=== PATIENT | female | born 1985 | race African-American/Black ===

== ENCOUNTER 2024-04-17 22:56 | Emergency (ER) | payer MEDICAID, SELFPAY ==
[2024-04-17 22:57] VITALS: BP 136/84; PULSE 103; RESP 19; TEMP 36.7; O2SAT 100; BMI 36.0
[2024-04-17 23:20] LABS: Basophils Percent Auto 0.5 % (0-2); Eosinophils Absolute Auto 0.1 X10*3/uL (0.0-0.4); Eosinophils Percent Auto 1.5 % (0-4); Hemoglobin 12.7 g/dl (12.0-16.0); Imm Gran Abs Auto 0.02 X10*3/uL (0.00-0.03); Imm Gran Pct Auto 0.3 % (0.0-0.4); Lymphocytes Absolute Auto 2.4 X10*3/uL (1.2-4.9); Lymphocytes Percent Auto 31.2 % (20-40); MANUAL DIFF FLAG SCAN; Mean Corpuscular HGB Conc 36.3 g/dl (31.0-35.0); Mean Corpuscular Hemoglobin 30.2 pg (27.0-33.0); Mean Corpuscular Volume 83.3 fL (80.0-98.0); Mean Platelet Volume 9.9 fL (9.4-12.3); Monocytes Absolute Auto 0.5 X10*3/uL (0.1-1.2); Monocytes Percent Auto 6.8 % (2-11); Neutrophils Absolute Auto 4.7 x10*3/uL (2.0-8.3); Neutrophils Percent Auto 59.7 % (45-73); PLT CLUMP 1; Red Cell Distribution Width 11.9 % (11.0-16.0); SCAN SMEAR FLAG 1
--- NOTE | 2024-04-17 23:30 | ED_ITS ---
HPI - Nausea/Vomiting/Diarrhea General Chief complaint: Abdominal Pain Stated complaint: cough, body aches, diffuse pain Time Seen by Provider: 04/17/24 23:15 Source: patient Mode of arrival: ambulatory Limitations: no limitations History of Present Illness ED Provider: HERMAN GAYLE Narrative: 39 yo female with PMH of IDDM, prior c section, appendectomy here with c/o traveling back from [place] on Thursday on the way home she developed nausea and diarrhea. She notes some mild upper abdominal cramping at times. No one else is sick, no fevers, no bloody stools and no pain now. She has not been on antibiotics. She feels that everything tastes gross to her she did take a COVID test and it was negative. No one else is sick whom she traveled with. She has no abdominal pain now. MD elicited complaint: nausea and diarrhea Onset (ago): day(s) (5) Associated nausea: Yes Associated abdominal pain: No Pain consistency: intermittent Severity: mild Quality: cramping Exacerbating factors: eating Relieving factors: none Associated symptoms: loss of appetite, malaise, weakness and fatigue Related Data Previous Rx's ?Medication ?Instructions ?Recorded ondansetron 4 mg disintegrating 4 mg PO Q8H PRN nausea and 04/18/24 tablet vomiting #20 tabs Allergies Allergy/AdvReac Type Severity Reaction Status Date / Time No Known Allergies Allergy Verified 04/17/24 23:01 Review of Systems 2 Review of Systems: Constitutional : No Weight loss, No Fever, No Chills ENT/Mouth : No sore throat, No Rhinorrhea Eyes: No Swelling, No Redness Cardiovascular : No Chest Pain, No SOB, NoEdema Respiratory : No Cough, No Sputum, No Wheezing Gastrointestinal : Positive Nausea, no Vomiting, positive Diarrhea, positive abdominal Pain, No Hematochezia, No Melena Genitourinary : No Dysuria, No Urinary Frequency, No Hematuria, No Urgency Musculoskeletal : No joint pain, No Myalgias, No Joint Swelling Skin : No Skin Lesions, No rash Neuro : pos Weakness, No Numbness, No Dizziness, No Headache Psych : No Anxiety/Panic, No Depression All other systems reviewed and are negative. Gastrointestinal: Gastrointestinal: Reports nausea PMFSH Past Medical History Attestation statement: The following information was validated with the patient. Source: old records reviewed Medical History (Updated 04/18/24 @ 01:46 by Ronel Francois DO) Diabetes Surgical History (Updated 04/17/24 @ 23:37 by Ronel Francois DO) Hx of appendectomy Previous section Social History Social History (Updated 04/17/24 @ 23:37 by Ronel Francois DO) Patient Tobacco Use Status: Never used Tobacco Smoked in Last 30 Days: No Use of substances other than those prescribed or required for medical reasons: No Advance Directives: No Advance Directives Information Provided: Yes Do you have a plan to hurt others: No Plan Patient : No Physical Exam 2 Vital Signs: Vital Signs: Last Vital Signs Temp 98.1 F 04/17/24 22:57 Pulse 103 H 04/17/24 22:57 Resp 19 04/17/24 22:57 BP 136/84 04/17/24 22:57 Pulse Ox 100 04/17/24 22:57 O2 Del Method Room Air 04/17/24 22:57 BMI result Body Mass Index 36.0 Appearance: Alert. Oriented X3. No acute distress. Eyes: Pupils equal, round and reactive to light. ENT: Pharynx normal. Neck: Normal inspection. Neck supple. CVS: Normal heart rate and rhythm. Pulses normal. Respiratory: No respiratory distress. Breath sounds normal. Abdomen: Soft and non-tender. She has no pain to palpation at this time Skin: Skin warm and dry. Normal skin color. Extremities: No lower extremity edema. Neuro: Oriented X 3. No motor deficit. No sensory deficit. Medications Administered Discontinued Medications Generic Name Dose Route Start Last Admin Trade Name Freq PRN Reason Stop Dose Admin Sodium Chloride 1,000 mls @ 999 mls/hr 04/17/24 23:23 04/18/24 00:18 Ns IV 04/18/24 00:23 999 mls/hr .Q1H1M ONE Administration Ondansetron HCl 4 mg 04/17/24 23:29 04/18/24 00:20 Ondansetron Hcl 4 Mg/2 Ml Vial IVPUSH 04/17/24 23:30 4 mg ONCE ONE Administration Medical Decision Making Medical Decision Making MDM Narrative: 39 yo female with PMH of IDDM, prior c section, appendectomy here with c/o nausea, poor taste, feels dehydrated, resolved diarhea - no recent abx use at this time will need basic labs, UA, IVF/zofran and viral panel to look for COVID. She has no CP/SOB or signs of DVT to suggest VTE and she has no pain on palpation at this time to suggest acute abdominal pathology or infection. Differential Diagnosis Differential Diagnoses: The differential diagnosis associated with the presentation includes viral syndrome, UTI, dehydration Admission/Observation Consideration of admission/observation: Escalation of care including admission/observation considered no abdominal pain, eating food, VS improved, feels much better Lab Data MDM Lab Attestation statement: I reviewed the patient's lab results. 04/17/24 23:11 04/17/24 23:11 Labs: Lab Results 04/17/24 04/18/24 Range/Units 23:11 01:23 WBC 7.8 (4.8-10.8) X10*3/uL RBC 4.20 (4.20-5.50) X10*6/uL Hgb 12.7 (12.0-16.0) g/dl Hct 35.0 L (37.0-47.0) % MCV 83.3 (80.0-98.0) fL MCH 30.2 (27.0-33.0) pg MCHC 36.3 H (31.0-35.0) g/dl RDW 11.9 (11.0-16.0) % Plt Count 234 (160-400) X10*3/uL MPV 9.9 (9.4-12.3) fL Immature Gran % (Auto) 0.3 (0.0-0.4) % Neut % (Auto) 59.7 (45-73) % Lymph % (Auto) 31.2 (20-40) % [place] % (Auto) 6.8 (2-11) % Eos % (Auto) 1.5 (0-4) % Baso % (Auto) 0.5 (0-2) % Lymph # (Auto) 2.4 (1.2-4.9) X10*3/uL [place] # (Auto) 0.5 (0.1-1.2) X10*3/uL Eos # (Auto) 0.1 (0.0-0.4) X10*3/uL Baso # (Auto) 0.0 (0.0-0.2) X10*3/uL Abs Immat Gran (auto) 0.02 (0.00-0.03) X10*3/uL Absolute Neuts (auto) 4.7 (2.0-8.3) x10*3/uL Absolute Nucleated RBC 0.000 (0.0-0.012) X10*3/uL Nucleated RBC % (auto) 0.0 (0.0-0.2) /100WBC Smear Tech's Comments VERIFIED Sodium 132 L (135-145) mmol/L Potassium 3.6 (3.3-5.1) mmol/L Chloride 98 (96-108) mmol/L Carbon Dioxide 21 L (22-29) mmol/L Anion Gap 17 (12-20) BUN 15 (9-16) mg/dL Creatinine 1.02 (0.5-1.4) mg/dL Estim Creat Clear Calc 75.4 Estimated GFR > 60 Random Glucose 327 H (60-115) mg/dL Calcium 9.4 (8.4-10.2) mg/dL Total Bilirubin 0.2 (0.0-1.0) mg/dL Direct Bilirubin < 0.2 (0.0-0.5) mg/dL AST 10 (5-31) U/L ALT 7 (0-31) U/L Alkaline Phosphatase 90 (39-117) U/L Total Protein 8.1 H (6.5-8.0) g/dL Albumin 3.6 (3.5-5.0) g/dL Lipase 39 (8-78) U/L Urine Color Yellow Urine Appearance Clear Urine pH 6.0 (5.0-9.0) Ur Specific [place] 1.020 (1.005-1.025) Urine Protein 30 (1+) H (Neg-Trace) mg/dL Urine Glucose (UA) >=1000 H (Negative) mg/dL Urine Ketones Negative (Negative) mg/dL Urine Blood Small (1+) H (Negative) Urine Nitrite Negative (Negative) Ur Leukocyte Esterase Negative (Negative) Urine RBC 3-5 H (0-2) /HPF Urine WBC 0-5 (0-5) /HPF Ur Squamous Epith Cells 3-5 (0-2) /HPF Urine Bacteria None Seen (None Seen) Hyaline Casts 0-2 (0-2) /LPF Granular Casts Present Urine Test NEGATIVE (NEGATIVE) Influenza Type A (PCR) NEGATIVE (Negative) Influenza Type B (PCR) NEGATIVE (Negative) RSV RNA Qual (PCR) NEGATIVE (Negative) SARS-CoV-2 RNA (RT-PCR) NEGATIVE (Negative) Independent Historian Clinical information obtained from an independent historian. History obtained from or confirmed by: Parent Prescription Management I considered prescription management with: Other (zofran) Discharge Plan Discharge Clinical Impression: Acute viral syndrome, Nausea Patient Disposition: Home, Self-Care Instructions: Acute Nausea and Vomiting (ED), Viral Syndrome (ED) Additional Instructions: eat a bland diet and advance slowly stay hydrated return if you develop pain, bloody stools, fevers, unable to eat or drink or any other concerns Prescriptions: New ondansetron 4 mg tablet,disintegrating 4 mg PO Q8H PRN (Reason: nausea and vomiting) Qty: 20 0RF Print Language: Swiss
[2024-04-17 23:38] LABS: Platelet Count 234 X10*3/uL (160-400); SLIDE REVIEW VERIFIED; White Blood Count 7.8 X10*3/uL (4.8-10.8)
[2024-04-17 23:39] LABS: Alanine Aminotransferase 7 U/L (0-31); Albumin Level 3.6 g/dL (3.5-5.0); Alkaline Phosphatase 90 U/L (39-117); Anion Gap 17 (12-20); Aspartate Amino Transferase 10 U/L (5-31); Bilirubin Direct < 0.2 mg/dL (0.0-0.5); Bilirubin Total 0.2 mg/dL (0.0-1.0); Blood Urea Nitrogen 15 mg/dL (9-16); Calcium 9.4 mg/dL (8.4-10.2); Carbon Dioxide 21 mmol/L (22-29); Chloride 98 mmol/L (96-108); Creatinine Clr Calc Pharmacy 75.4; Estimated Glomerular Filt Rate > 60; Glucose Random 327 mg/dL (60-115); Lipase 39 U/L (8-78); Potassium 3.6 mmol/L (3.3-5.1); Sodium 132 mmol/L (135-145); Total Protein 8.1 g/dL (6.5-8.0)
[2024-04-17 23:56] LABS: Influenza A PCR NEGATIVE (Negative); Influenza B PCR NEGATIVE (Negative); Resp Syncy Virus RNA Qual PCR NEGATIVE (Negative); SARS COV2 PCR INHOUSE NEGATIVE (Negative)
[2024-04-18] MEDS: 0.9 % Sodium Chloride 1,000 ML 999 ML IV (00:18)
[2024-04-18] MEDS: ondansetron HCL 4 MG/2 ML VIAL IVPUSH (00:20)
[2024-04-18 01:30] LABS: Appearance Urine Clear; Color Urine Yellow; Glucose Urine UA >=1000 mg/dL (Negative); Leukocyte Esterase Urine Negative (Negative); Nitrite Urine Negative (Negative); UMIC TRIGGER UACC YES; Urine Blood Small (1+) (Negative); Urine Ketones Negative (Negative); Urine Protein 30 (1+) mg/dL (Neg-Trace)
[2024-04-18 01:32] LABS: UPreg QC Valid YES; Urine Pregnancy NEGATIVE (NEGATIVE)
[2024-04-18 01:42] LABS: Bacteria Urine None Seen (None Seen); Granular Casts Urine Present; Hyaline Casts Urine 0-2 /LPF (0-2); WBC Urine 0-5 /HPF (0-5)
[2024-04-18 01:50] VITALS: BP 110/75; PULSE 94; RESP 18; TEMP 36.8; O2SAT 96
[2024-04-18 02:01] VITALS: BP 110/75; PULSE 94; RESP 18; TEMP 36.8; O2SAT 96
== END 2024-04-18 02:02 | disposition home or self-care (01) ==
PROVIDERS: Emergency Provider Emergency Medicine; PCP Internal Medicine
DX: B34.9 Viral infection, unspecified (principal); R10.30 Lower abdominal pain, unspecified; R05.9 Cough, unspecified; M79.10 Myalgia, unspecified site; R11.0 Nausea; Z03.818 Encounter for observation for suspected exposure to other biological agents ruled out; Z79.899 Other long term (current) drug therapy
CPT/HCPCS: 0241U; 80048; 80076; 81001; 81025; 83690; 85025; 96360; 96374; 99284; J2405

== ENCOUNTER 2024-06-20 22:42 | Emergency (ER) | payer MEDICAID, SELFPAY ==
[2024-06-20 22:46] VITALS: BP 113/81; PULSE 111; RESP 20; TEMP 36.8; O2SAT 97; BMI 37.8
--- NOTE | 2024-06-21 02:46 | ED.GENADULT ---
HPI - General Adult General Chief complaint: General Medical Stated complaint: lower back pain Time Seen by Provider: 06/21/24 02:43 Source: patient Mode of arrival: ambulatory Limitations: no limitations History of Present Illness ED Provider: Dr. Marley HPI narrative: Patient is a diabetic and she has a vaginal discharge. The Discharge is yellow and she is concerned that she either has a STD or candidiasis. She has had the discharge for one week Onset (ago): week(s) Related Data Previous Rx's ?Medication ?Instructions ?Recorded ondansetron 4 mg disintegrating 4 mg PO Q8H PRN nausea and 04/18/24 tablet vomiting #20 tabs Allergies Allergy/AdvReac Type Severity Reaction Status Date / Time No Known Allergies Allergy Verified 06/20/24 22:46 Review of Systems Review of Systems: Yes all other systems are reviewed and are negative Neurologic: Denies Sensory deficit (Neuro) [facility] Past Medical History Medical History Diabetes Surgical History Hx of appendectomy Previous section Social History Social History Patient Tobacco Use Status: Never used Tobacco Advance Directives: No Advance Directives Information Provided: No Do you have a plan to hurt others: No Plan Physical Exam ED Vital Signs: Vital Signs - 24 hr 06/20/24 22:46 Temperature 98.3 F Pulse Rate 111 H Respiratory Rate 20 Blood Pressure 113/81 Pulse Oximetry 97 Oxygen Delivery Method Room Air BMI result Body Mass Index 37.8 Const General: healthy appearing Nutritional Appearance: average body habitus Orientation/consciousness: oriented to person and patient oriented x3 Limitations: no limitations HENMT Head: Yes normal to inspection Ears: external ears normal General nose exam: Normal external nose present Mouth: Normal oral and palatal mucosa present and oropharynx normal Throat: Yes posterior oropharynx normal Eyes General: appearance normal, both eyes and all related structures Neck Neck: Yes normal visual inspection Chest Chest palpation & inspection: normal inspection of the chest Resp Auscultation: clear to auscultation bilaterally Cardio Jugular venous distension: no JVD Rate: regular rate Rhythm: regular rhythm Heart sounds: S1 normal heart sound present and S2 normal heart sound present GI Inspection: Yes normal to inspection Palpation (GI): Soft to palpation, nontender and No hepatosplenomegaly present Auscultation: normal bowel sounds General: Yes no CVA tenderness Back/Spine/Pelvis Back: no CVA tenderness Skin General skin exam: no rashes or lesions noted Neuro General: oriented to person and patient oriented x3 Cranial nerves: Yes CN's II-XII intact bilaterally Motor exam (neuro): 5/5 motor strength present throughout Sensory Exam: No Sensory deficit (Neuro) Extrem General: Yes normal to inspection Psych Appearance: grossly normal Course Reevaluation(s) Reevaluation #1: Urine ng/CT sent as well as BV, bobbi, and trichomonas. Will call patient if the tests are positive Time: 04:08 Medical Decision Making Differential Diagnosis Differential Diagnoses: The differential diagnosis associated with the presentation includes (gonorrhea, chlamydia, trichomonas, bacterial vaginosis, candidiasis) Prescription Management I considered prescription management with: Antibiotic (will await on cultures before start abx) Social Determinants Patient?s care significantly limited by Social Determinants of Health including: Low income Discharge Plan Discharge Clinical Impression: Vaginal discharge Patient Disposition: Home, Self-Care Instructions: Vaginal Discharge (ED) Prescriptions: No Action ondansetron 4 mg tablet,disintegrating 4 mg PO Q8H PRN (Reason: nausea and vomiting) Qty: 20 0RF Referrals: Kamran Tran MD [Physician] - 3 days Print Language: Palestinian
[2024-06-21 04:36] VITALS: BP 123/76; PULSE 101; RESP 18; TEMP 36.1; O2SAT 100
[2024-06-21 04:42] VITALS: BP 123/76; PULSE 102; RESP 17; TEMP 36.1; O2SAT 100
[2024-06-21 11:27] LABS: CT PCR NOT DETECTED (Not Detect.); NG PCR DETECTED (Not Detect.)
[2024-06-21 11:51] LABS: Bacterial Vaginosis PCR POSITIVE (Negative); Candida Group PCR NOT DETECTED (Not Detect); Candida glab krusei PCR NOT DETECTED (Not Detect); Trichomonas vaginalis PCR DETECTED (Not Detect)
== END 2024-06-21 04:43 | disposition home or self-care (01) ==
PROVIDERS: Emergency Provider Emergency Medicine
DX: N76.0 Acute vaginitis (principal); M54.50 Low back pain, unspecified; A54.9 Gonococcal infection, unspecified
CPT/HCPCS: 0352U; 87491; 87591; 99283; 99284

== ENCOUNTER 2024-06-23 18:58 | Emergency (ER) | payer MEDICAID, SELFPAY ==
[2024-06-23 19:23] VITALS: BP 141/88; PULSE 104; RESP 16; TEMP 36.6; O2SAT 98; BMI 38.7
--- NOTE | 2024-06-23 19:30 | ED.FEMALEGU ---
HPI - Female Genitourinary General Chief complaint: Urogenital-Female Stated complaint: seen here t-2 in ED, was called to come back? Time Seen by Provider: 06/23/24 19:21 Source: patient Mode of arrival: ambulatory Limitations: no limitations History of Present Illness ED Provider: Kalin Bravo PA-C HPI Narrative: 39 yold female presents to the ED to be treated for gonorrhea, and trich and BV. patient was called with results and return to the ED to be treated. Patient admits to unprotected sex Related Data Previous Rx's ?Medication ?Instructions ?Recorded ondansetron 4 mg disintegrating 4 mg PO Q8H PRN nausea and 04/18/24 tablet vomiting #20 tabs metronidazole 500 mg tablet 500 mg PO Q12H 7 days #14 tabs 06/23/24 Allergies Allergy/AdvReac Type Severity Reaction Status Date / Time almond Allergy Anaphylaxis Verified 06/23/24 19:24 banana Allergy Anaphylaxis Verified 06/23/24 19:24 Review of Systems Review of Systems: STD Yes all other systems are reviewed and are negative PMFSH Past Medical History Medical History Diabetes Surgical History Hx of appendectomy Previous section Social History Social History Patient Tobacco Use Status: Never used Tobacco Advance Directives: No Advance Directives Information Provided: No Physical Exam Vital Signs: Vital Signs: Last Vital Signs Temp 97.8 F 06/23/24 20:27 Pulse 104 H 06/23/24 20:27 Resp 16 06/23/24 20:27 BP 141/88 H 06/23/24 20:27 Pulse Ox 98 06/23/24 20:27 O2 Del Method Room Air 06/23/24 20:27 BMI result Body Mass Index 38.7 Const: General: cooperative, healthy appearing, comfortable, no acute distress, well developed, alert and awake Orientation/consciousness: patient oriented x3 HEENT: Head: Yes normal to inspection, Yes No palpable skull fracture present, Yes normocephalic and Yes atraumatic Eyes: General: appearance normal, both eyes and all related structures Neck: Neck: Yes normal visual inspection, Yes full ROM, Yes no lymphadenopathy, Yes no meningeal signs, Yes trachea midline, Yes supple, No anterior neck swelling and No tender Chest: Chest palpation & inspection: normal inspection of the chest and normal palpation of entire chest wall Resp: Effort & Inspection: normal respiratory effort and able to speak in complete sentences Auscultation: clear to auscultation bilaterally Cardio: Jugular venous distension: no JVD Heart sounds: S1 normal heart sound present and S2 normal heart sound present GI: Inspection: Yes normal to inspection Palpation (GI): Soft to palpation, not firm, nontender, no guarding and not rigid : Other: deferred General: Yes no CVA tenderness Back/Spine/Pelvis: Back: no CVA tenderness and No back tenderness Skin: General skin exam: no rashes or lesions noted, elasticity normal and turgor normal Neuro: General: patient oriented x3, gait normal, tone normal, moves all extremities, Normal light touch and pain sensation, no meningeal signs, no focal motor deficits and CN's II-XI intact bilaterally Extrem: General: Yes normal to inspection, Yes full ROM and Yes capillary refill normal Psych: Appearance: grossly normal, well kempt and not disheveled Course Course Course Narrative: RME: Done by BOB Bravo. Patient presented to the ED to be treated for known gonorrhea metronidazole. Patient was called back to the ED for treatment. Medications Administered Discontinued Medications Generic Name Dose Route Start Last Admin Trade Name Freq PRN Reason Stop Dose Admin Ceftriaxone Sodium 500 mg/ 0 mg 06/23/24 19:22 06/23/24 20:27 Lidocaine HCl 1 ml IM 06/23/24 19:23 1 kit ONCE ONE Administration Medical Decision Making Medical Decision Making [facility] Narrative: 39-year-old female presents to the ED for treatment for gonorrhea and BV. Patient received ceftriaxone will be discharged with metronidazole. Patient informed to tell her partners. Patient informed to go to [facility] to be tested for HIV, syphyillis, herpes, or any other tests Differential Diagnosis Differential Diagnoses: The differential diagnosis associated with the presentation includes (STI) Admission/Observation Consideration of admission/observation: Escalation of care including admission/observation considered Independent Historian Clinical information obtained from an independent historian. History obtained from or confirmed by: Other (patient) External Record Review External record reviewed: Other (prior) Prescription Management I considered prescription management with: Antibiotic Discharge Plan Discharge Clinical Impression: Trichomoniasis, Bacterial vaginosis, Gonorrhea Patient Disposition: Home, Self-Care Instructions: Bacterial Vaginosis (ED), Gonorrhea (ED), Trichomoniasis (ED) Additional Instructions: Recommend follow-up with your primary care provider. No sexual activity for the next 7 days. Return to the ED for any flank pain, fever, chills, nausea, vomiting, abdominal pain, vaginal lesions, or any other concerning symptoms. Follow-up with [facility] to be tested for other STIs Prescriptions: New metronidazole 500 mg tablet 500 mg PO Q12H 7 Days Qty: 14 0RF No Action ondansetron 4 mg tablet,disintegrating 4 mg PO Q8H PRN (Reason: nausea and vomiting) Qty: 20 0RF Interventions: ED Discharge Assessment Last Done: 06/23/24 20:27 Discharge Date/Time: 06/23/24 20:28 Print Language: Citizen Of [place]
[2024-06-23 20:27] VITALS: BP 141/88; PULSE 104; RESP 16; TEMP 36.6; O2SAT 98
[2024-06-23] MEDS: cefTRIAXone sodium 500 MG, Lidocaine HCl 1 % MPF 1 ML IM (20:27)
== END 2024-06-23 20:28 | disposition home or self-care (01) ==
PROVIDERS: Emergency Provider Internal Medicine
DX: N76.0 Acute vaginitis (principal); A54.9 Gonococcal infection, unspecified; A59.01 Trichomonal vulvovaginitis; Z20.2 Contact with and (suspected) exposure to infections with a predominantly sexual mode of transmission
CPT/HCPCS: 96372; 99282; 99284; J0696

== ENCOUNTER 2024-11-22 18:34 | Emergency (ER) | payer MEDICAID, SELFPAY ==
[2024-11-22 18:39] VITALS: BP 150/80; BP 168/99; PULSE 100; PULSE 115; RESP 16; TEMP 36.9; O2SAT 100; O2SAT 97; BMI 43.0
[2024-11-22 18:48] VITALS: RESP 16
--- NOTE | 2024-11-22 19:16 | ED_ITS ---
HPI - Psych General Chief Complaint: Psychiatric Symptoms Stated Complaint: Previous SI statement, now denies wanting to harm Time Seen by Provider: 11/22/24 18:43 Source: patient, EMS and police Mode of arrival: EMS Limitations: no limitations History of Present Illness ED Provider: DR. Penaloza HPI Narrative: 39-year-old female history of diabetes has been feeling depressed and upset, patient posted a SI statement on the face book, patient was brought in by EMS and the police under section 12, patient in the ED is tearful feels frustrated and angry because her did not show up to court day for filing a divorce at the court. Currently patient regrets her statement on the face woke declined any SI or HI or hallucination. Patient is diabetic blood sugar was 300 today. Never been hospitalized for mental health issue. Related Data Previous Rx's ?Medication ?Instructions ?Recorded ondansetron 4 mg disintegrating 4 mg PO Q8H PRN nausea and 04/18/24 tablet vomiting #20 tabs metronidazole 500 mg tablet 500 mg PO Q12H 7 days #14 tabs 06/23/24 Allergies Allergy/AdvReac Type Severity Reaction Status Date / Time almond Allergy Anaphylaxis Verified 11/22/24 18:47 banana Allergy Anaphylaxis Verified 11/22/24 18:47 Review of Systems Review of Systems: All other systems are reviewed and are negative Constitutional: Reports as per HPI and Reports no additional constitutional complaints Eyes: Reports as per HPI and Reports no additional eye complaints Reports system reviewed and no additional complaints, except as documented Cardiovascular: Reports as per HPI and Reports no additional cardiovascular complaints Respiratory: Reports as per HPI and Reports no additional respiratory complaints Gastrointestinal: Reports as per HPI and Reports no additional gastrointestinal complaints Genitourinary: Reports no additional female genitourinary complaints Musculoskeletal: Reports no additional musculoskeletal complaints Skin/Breast: Reports system reviewed and no additional complaints, except as docu Psychiatric: Reports no additional psychiatric complaints Endocrine: Reports no additional endocrine complaints Hematologic/Lymphatic: Reports no additional hematologic/lymphatic complaints Allergic/Immunologic: Reports no additional allergic/immunologic complaints Reports system reviewed and no additional complaints, except as documented and Reports Abnormal speech present [facility] Past Medical History Medical History Diabetes Surgical History Hx of appendectomy Previous section Social History Social History Unable to assess alcohol history related to: Refusing to respond Patient Tobacco Use Status: Never used Tobacco Smoked in Last 30 Days: No Use of substances other than those prescribed or required for medical reasons: Refusing to respond Patient : No Physical Exam Vital Signs: Vital Signs: Last Vital Signs Temp 98.5 F 11/22/24 18:39 Pulse 115 H 11/22/24 18:39 Resp 16 11/22/24 18:48 BP 168/99 H 11/22/24 18:39 Pulse Ox 100 11/22/24 18:39 O2 Del Method Room Air 11/22/24 18:39 BMI result Body Mass Index 43.0 Vital signs have been reviewed and appear to be correct. Blood pressure elevated. Heart rate elevated. Respiratory rate normal. Temperature normal. Oxygen saturation normal. Appearance: Alert. Oriented X3. No acute distress. Head: Normal external exam. Normocephalic. Atraumatic. No Lind signs noted. No raccoon eyes noted Eyes: PERRLA. EOMI. Conjunctiva and sclera normal. Eyelids normal. ENT: TM's Normal. Pharynx normal. Uvula midline. Moist mucous membranes. No trismus noted. No drooling noted. No muffled voice noted. Neck: Normal inspection. Neck supple. FROM. No adenopathy. Thyroid Normal. No meningeal signs. No neck mass noted. CVS: Normal heart rate and rhythm. Heart sound normal. No murmurs noted. Pulses normal throughout. Respiratory: No respiratory distress. Painless inspiration. Breath sounds normal. No wheezes/rales/rhonchi noted. Chest nontender. No accessory muscle usage noted or decreased air movement noted. Abdomen: Soft and nontender. Bowel sounds normal in all 4 quadrants. No distention noted. No organomegaly noted. No visible injury noted. Back: No CVA tenderness. Full range of motion noted. Skin: Skin warm and dry. Normal skin color. Normal skin turgor. No rashes/lesions/lacerations noted. Extremities: No lower extremity edema. Extremities exhibit normal range of motion. Extremities nontender. Neuro: Oriented X 3. Cranial nerve exam: II-XII are grossly intact No motor deficit. No sensory deficit. Reflexes normal. Patient Orientation: Person, Place, Time and Situation, okay hygiene and grooming. Fair eye contact, attentive, no tics or tremors. Level of Consciousness: Awake, Appropriate and Alert Patient Behavior: Tearful, Appropriate, Guarded, Cooperative and Anxious Mood Description: Constricted, Blunted and Apprehensive Affect Description: Constricted, Blunted and Apprehensive Patient Cognition Impaired: No Ability to Follow Directions: Excellent Speech Pattern: Clear, Appropriate and Spontaneous Speech, nonpressured, spontaneous with regular rate and rhythm, normal volume and prosody. No dysarthria. Memory Description: Intact, Immediate Intact and Short Term Intact Hallucinations: None Delusions: Not Present Thought Process: Intact Thought Content: positive for Intact, positive for Logical, denies Suicidal Ideation and denies Homicidal Ideation. Depressive Symptoms: Not present. Judgement and Insight: Limited but adequate. Course Reevaluation(s) Reevaluation #1: 39-year-old female feels depressed and overwhelmed while she is in the process of divorce with her , posted on the [employer] SI statement that she regrets now. Care team for further evaluation and contact collaterals. Medical clearance. Time: 19:21 Medical Decision Making Differential Diagnosis Differential Diagnoses: The differential diagnosis associated with the presentation includes (SI, HI, hallucination, medical cramps, electrolyte derangement, severe anemia) Admission/Observation Consideration of admission/observation: Escalation of care including admission/observation considered Lab Data MDM Lab Attestation statement: I reviewed the patient's lab results. Discharge Plan Discharge Clinical Impression: Depression Patient Disposition: Still a Patient Prescriptions: No Action ondansetron 4 mg tablet,disintegrating 4 mg PO Q8H PRN (Reason: nausea and vomiting) Qty: 20 0RF metronidazole 500 mg tablet 500 mg PO Q12H 7 Days Qty: 14 0RF Interventions: [place]-Suicide Risk Severity Scale Last Done: 11/22/24 18:49 Print Language: [place] Island[place]
[2024-11-22 19:31] LABS: MANUAL DIFF FLAG NO
[2024-11-22 19:36] LABS: Basophils Absolute Auto 0.1 X10*3/uL (0.0-0.2); Basophils Percent Auto 0.6 % (0-2); Eosinophils Percent Auto 0.5 % (0-4); Hematocrit 36.8 % (37.0-47.0); Hemoglobin 12.5 g/dl (12.0-16.0); Imm Gran Abs Auto 0.03 X10*3/uL (0.00-0.03); Imm Gran Pct Auto 0.4 % (0.0-0.4); Lymphocytes Absolute Auto 2.2 X10*3/uL (1.2-4.9); Lymphocytes Percent Auto 26.4 % (20-40); Mean Corpuscular Hemoglobin 29.3 pg (27.0-33.0); Mean Corpuscular Volume 86.2 fL (80.0-98.0); Mean Platelet Volume 8.7 fL (9.4-12.3); Monocytes Absolute Auto 0.4 X10*3/uL (0.1-1.2); Monocytes Percent Auto 5.2 % (2-11); Neutrophils Absolute Auto 5.6 x10*3/uL (2.0-8.3); Neutrophils Percent Auto 66.9 % (45-73); Platelet Count 431 X10*3/uL (160-400); Red Blood Count 4.27 X10*6/uL (4.20-5.50); Red Cell Distribution Width 12.6 % (11.0-16.0); White Blood Count 8.3 X10*3/uL (4.8-10.8)
[2024-11-22 19:51] LABS: Alanine Aminotransferase 13 U/L (0-31); Albumin Level 3.8 g/dL (3.5-5.0); Alkaline Phosphatase 71 U/L (39-117); Anion Gap 14 (12-20); Aspartate Amino Transferase 20 U/L (5-31); Bilirubin Total 0.4 mg/dL (0.0-1.0); Blood Urea Nitrogen 7 mg/dL (9-16); Calcium 9.1 mg/dL (8.4-10.2); Carbon Dioxide 26 mmol/L (22-29); Chloride 101 mmol/L (96-108); Creatinine Clr Calc Pharmacy 97.2; Estimated Glomerular Filt Rate > 60; Ethanol < 10 mg/dL; Glucose Random 375 mg/dL (60-115); Potassium 4.5 mmol/L (3.3-5.1); Sodium 136 mmol/L (135-145); Total Protein 8.6 g/dL (6.5-8.0)
[2024-11-22] MEDS: Insulin Lispro 100 UNIT/ML 3 ML VIAL SUBCUT (20:36)
[2024-11-22 20:55] LABS: Appearance Urine Clear; Color Urine Yellow; Glucose Urine UA >=1000 mg/dL (Negative); Leukocyte Esterase Urine Negative (Negative); Nitrite Urine Negative (Negative); PH 5.5 (5.0-9.0); Specific Gravity - Urine >= 1.030 (1.005-1.025); UMIC TRIGGER UACC YES; Urine Blood Small (1+) (Negative); Urine Ketones 15 mg/dL (Negative); Urine Protein 100 (2+) mg/dL (Neg-Trace)
[2024-11-22 21:04] LABS: Amphetamine Screen Urine Not Detected (Not Detect); Bacteria Urine None Seen (None Seen); Barbiturates, Urine Not Detected (Not Detect); Benzodiazepines Screen Urine Not Detected (Not Detect); Buprenorphine Scr Not Detected (Not Detect); Cannabinoid Screen Urine Not Detected (Not Detect); Cocaine Screen Urine Not Detected (Not Detect); Fentanyl, urine Not Detected (Not Detect); Hyaline Casts Urine 0-2 /LPF (0-2); Methadone Screen, Urine Not Detected (Not Detect); Opiate Screen Urine Not Detected (Not Detect); Oxycodone Screen Urine Not Detected (Not Detect); Phencyclidine Screen Urine Not Detected (Not Detect); Squamous Epithelial Cell Urine 0-2 /HPF (0-2); WBC Urine 0-5 /HPF (0-5)
[2024-11-22] MEDS: hydrOXYzine HCL 50 MG TABLET PO (21:05)
[2024-11-22 21:12] LABS: Glucose, Whole Blood 326 mg/dL (60-115)
--- OUTSIDE RECORDS SUMMARY | 2024-11-22 21:20 | XMS_ITS | Continuity of Care Document ---
Author Organization [facility] Address [address] [place] [address] [address] [place], [place] Phone [phone] Care Team Providers Care Piece [employer] Name Role Phone Pasquale Arzola Care Team Information Receiv er Unavailable Social History Type Date Description Comments Sex Unknown
--- OUTSIDE RECORDS SUMMARY | 2024-11-22 21:21 | XMS_ITS | Encounter Summary ---
Author Organization [facility] Address [address] [place] [address] Care Team Providers Care Caseworker Intake Name Role Phone Dasha Martínez Primary Care Provider [phone] Reason for Visit * Reason Comments Diabetes Mellitus 39yr old female here for DM f/u Encounter Details Date Type Department Care Team (Late st Contact Info) Description 11/07/2024 3:20 PM EST Office Visit [facility] [address] [place] [phone] Hussein Carrasquillo, PharmD [address] [place] [address] Uncontrolled type 2 diabetes mellitus with hyperglycemia, with long-term current use of insulin ([facility]) (Primary Dx); Class 2 obesity due to excess calories without serious comorbidity with body mass index (BMI) of 38.0 to 38.9 in adult Social History Tobacco Use Types Packs/Day Years Used Date Smoking Tobacco: Never Smokeless Tobacco: Never Alcohol Use Standard Drinks/Week Comments No 0 (1 standard drink = 0.6 oz pur e alcohol) Social Connections Answer Date Recorded Connectedness 1 06/03/2024 Financial Resource Strain Answer Date R ecorded Financial Resource Strain 2 2023 Stress Answer Date Recorded Stress 1 06/03/2024 Physical Activity Answer Date Recorded Physical Activity 0 05/16/2019 Food Insecurity Answer Date Recorded Food 1 06/03/2024 Transportation Needs Answer Date Record ed Transportation 1 06/03/2024 Housing Stability Answer Date Recorded Housing 1 06/03/2024 Safety and Environment Answer Date Maxx rded Safety 1 06/03/2024 Utilities Answer Date Recorded Utilities 2 06/03/2024 Employment Answer Date Recorded Stress 0 12/16/2021 Comments No Sex and Gender Information Value Date Recorded Sex Assigned at Female 09/04/2017 11:24 AM PST Legal Sex Female 11:36 AM PDT Gender Identity Female 09/04/2017 11:24 AM PST Sexual Orientation Straight 09/04/2017 11 :24 AM PST documented as of this encounter Last Filed Vital Signs Vital Sign Reading Time Taken Comments Blood Pressure 110/80 11/07/2024 3:43 PM EST Pulse 101 11/07/2024 3:43 PM EST Temperature 36.9 ??C (98.4 ??F) 11/07/2024 3:43 PM ES T Respiratory Rate 18 11/07/2024 3:43 PM EST Oxygen Saturation 99% 11/07/2024 3:43 PM EST Inhaled Oxygen Concentration - - Weight 92.1 kg (203 lb) 11/07/2024 3:43 PM EST Height 154.9 cm (5' 1 ) 11/07/2024 3:43 PM EST Body Mass Index 38.36 11/07/2024 3:43 PM EST documented in this encounter Progress Notes * Hussein Rogers PharmD - 11/07/2024 3:45 PM EST Images from the original note were not included. Samantha Daniel is a 39 year old, [place]adian-speaking female who presents today for a follow-up visit in [facility] with Hussein Smith PharmD. Referred by Betzy Huynh PA-C. No central office technician needed for today's visit as patient speaks Trinidadian. Subjective: Patient reports: Continues to use Omnipod 5 w/ Dexcom G7, denies experiencing any issues. Per AGP report, BG uncontrolled and patient not bolusing Endorses adherence to medications. Denies side effects. Patient denies bolusing. Polydipsia/polyphagia/polyuria? No Denies signs/symptoms of hypoglycemia. Changes in diet: working on increasing salad intake Changes in physical activity: denies exercise New concerns: No concerns Tobacco Use: Never Smoker Alcohol Use: Socially, only during holidays/gatherings Additional OTC medications or supplements: MVI, Biotin Specialists managing DM: None Diabetes Current Diabetes RX: Humalog via Omnipod up to 100 units daily Trulicity 0.75 mg weekly Objective: CGM Metrics: Previous 2 weeks SMBG (CGM: Omnipod 5 w/ Dexcom G6) Allergies reviewed: Allergies Allergen Reactions Banana Unknown Tingling of lips BP 110/80 (Right Arm, Sitting, Large Adult) Pulse (!) 101 Temp 98.4 ??F (36.9 ??C) Resp 18 Ht 5' 1 (1.549 m) Wt 203 lb (92.1 kg) LMP 10/07/2024 (Approximate) SpO2 99% BMI 38.36 kg/m?? OB Status Having periods Smoking Status Never BSA 1.99 m?? Estimated Creatinine Clearance: 92 mL/min (by C-G formula based on SCr of 0.9 mg/dL). Last 3 BP Readings: Date: BP: 11/07/2024 110/80 09/13/2024 112/82 08/11/2024 110/80 Wt Readings from Last 3 Encounters: 11/07/24 203 lb (92.1 kg) 09/13/24 202 lb 3.2 oz (91.7 kg) 08/11/24 195 lb 9.6 oz (88.7 kg) Lab Results Component Value Date HGBA1C 9.6 (A) 11/07/2024 HGBA1C 11.4 (H) 05/31/2024 HGBA1C 9.7 (A) 09/11/2023 Lab Results Component Value Date GLUCOSE 145 (A) 11/07/2024 EAG 303 07/16/2020 Lab Results Component Value Date MICRALBCREAT 161.1 (H) 09/27/2019 URALBCREAT 34 (H) 05/31/2024 Lab Results Component Value Date NA 137 05/31/2024 K 4.7 05/31/2024 BUN 21 05/31/2024 BUNCREAT SEE NOTE: 05/31/2024 CREATININE 0.90 05/31/2024 EGFR 84 05/31/2024 Lab Results Component Value Date TSH 0.88 06/03/2024 Lab Results Component Value Date TRIGLYC 251 (H) 05/31/2024 CHOL 217 (H) 05/31/2024 HDL 51 05/31/2024 LDL 127 (H) 05/31/2024 CHOLHDL 4.3 05/31/2024 NONHDL 166 (H) 05/31/2024 The ASCVD Risk score (Cindy MAK, et al., 2019) failed to calculate for the following reasons: The 2019 ASCVD risk score is only valid for ages 40 to 79 Assessment: Diabetes: Improved A1c, Poorly controlled SMBG ASCVD: Age 20-39 yo, DM with with additional ASCVD risk factors = reasonable to start moderate intensity statin + lifestyle modifications Plan: E11.65,Z79.4 Uncontrolled type 2 diabetes mellitus with hyperglycemia, with long-term current use of insulin ([facility]) (primary encounter diagnosis) Plan : GLUCOSE, BLOOD BY GLUCOSE MONITORING DEVICE (CLIA WAIVED)POCT GLYCOSYLATED (A1C) DEVICE (CLIA WAIVED) POCT TRULICITY 1.5 MG/0.5 ML SUBCUTANEOUS PEN INJECTOR - Inject 1.5 mg into the skin once a week INSULIN LISPRO (U-100) 100 UNIT/ML SUBCUTANEOUS SOLUTION - USE with Pump UP TO 100 UNITS DAILY PHARMACOTHERAPY for diabetes A1c slightly improved from 11.4% to 9.6%, still above goal of <7%. Will increase Trulicity from 0.75 mg to 1.5 mg weekly for enhanced BG control. Continue Humalog via Omnipod. Counseled patient on importance of bolusing for BG control. Counseled patient on the following diet and lifestyle modifications (weight loss, decrease carbohydrates such as rice, bread, pasta and corn meal, increase non-starchy vegetables, no potatoes or corn, and increase physical activity with at least 150 minutes of moderate physical activity per week) E66.812,E66.09,Z68.38 Class 2 obesity due to excess calories without serious comorbidity with body mass index (BMI) of 38.0 to 38.9 in adult Obesity Lifestyle measures:BMI follow up plan: The patient was counseled regarding nutrition and physical activity. Counseled patient on importance of diet and lifestyle (weight loss, decrease carbohydrates such as rice, bread, pasta and corn meal, increase non-starchy vegetables, no potatoes or corn, and increase physical activity with at least 150 minutes of moderate physical activity per week). ASCVD: Per 2023 ADA guidelines for lipid management, continue moderate-intensity statin: atorvastatin 20 mg daily Referral: None Follow-Up: 1 month Patient agrees with plan of care and verbalizes understanding. Questions were answered. Education: Medication Regimen: (indication, dosage, administration, storage, ADR, missing dose) BG testing and target Focus on consuming carbohydrates from high-fiber sources like whole grains, legumes, and fruits in controlled portions to help manage blood sugar levels, and aim to fill half your plate with non-starchy vegetables like leafy greens, broccoli, or peppers for added nutrients and fiber. Avoid sugary beverages like soda and limit sweets to special occasions, choosing healthier alternatives such as water, unsweetened tea, or low-calorie drinks to minimize blood sugar spikes Incorporate at least 150 minutes of moderate physical activity per week, such as brisk walking or cycling, to improve insulin sensitivity, enhance glucose control, and support overall cardiovascular health. Sign / Symptoms of Hyperglycemia / Hypoglycemia Hypoglycemia Treatment (Rule 15) Senior Living Complications Uncontrolled Diabetes Hussein Smith PharmD documented in this encounter Miscellaneous Notes * Patient Instructions - Hussein Rogers PharmD - 11/07/2024 4:08 PM EST If you are not able to keep your appointment please call 24-48 hours before your appointment to cancel or reschedule. Hussein Smith PharmD, [facility] MTM/Clinical Pharmacist ext. [phone] documented in this encounter Plan of Treatment Upcoming Encounters Date Type Department Care Team (Late st Contact Info) Description 12/23/2024 3:40 PM EDT Office Visit [facility] [address] [place] [phone] Hussein Carrasquillo PharmD [address] [place] [address] documented as of this encounter Goals Goal Patient Goal Type Associated Problems Recent Progress Patient-Stated? Author Weight < 200 lb (90.719 kg) Weight 202 lb 9.6 oz (91.9 kg)( 5 3:12 PM EST) Kayce You PA-C Note: Samantha has committed to decreasing her snacking throughout the day Samantha has committed to decreasing her consumption of sugared beverages Samantha has committed to continuing to check her blood sugars and bolus insulin from her pump documented as of this encounter Procedures Procedure Name Priority Date/Time Associated Diagnosis Comments GLYCOSYLATED (A1C) DEVICE (CLIA WAIVED) POCT Routine 11/07/2024 3:54 PM EST Uncontrolled type 2 diabetes mellitus with hyperglycemia, with long-term current use of insulin ([facility]) GLUCOSE, BLOOD BY GLUCOSE MONITORING DEVICE (CLIA WAIVED)POCT Routine 11/07/2024 3:49 PM EST Uncontrolled type 2 diabetes mellitus with hyperglycemia, with long-term current use of insulin ([facility]) documented in this encounter Results * (ABNORMAL) GLYCOSYLATED (A1C) DEVICE (CLIA WAIVED) POCT (11/07/2024 3:54 PM EST) HGB A1C 9.6(A) 4.2 - 6.5 % [facility] OFFICE POCT Capillary Blood Blood / Unknown 5 3:54 PM EST Hussein Rogers PharmD LAB - BLOOD D RAW Final Result [facility] BACK OFFICE POCT * (ABNORMAL) GLUCOSE, BLOOD BY GLUCOSE MONITORING DEVICE (CLIA WAIVED)POCT (11/07/2024 3:49 PM EST) GLUCOSE 145(A) 70 - 100 mg/dL [facility] OFFICE POCT Capillary Blood Blood / Unknown 3:49 PM EST Hussein Rogers PharmD LAB - BLOOD D RAW Final Result [facility] BACK OFFICE POCT documented in this encounter Visit Diagnoses Diagnosis Uncontrolled type 2 diabetes mellitus with hyperglycemia, with long-term current use of insulin ([facility])- Primary Class 2 obesity due to excess calories without serious comorbidity with body mass index (BMI) of 38.0 to 38.9 in adult documented in this encounter Additional Health Concerns Assessment Noted Time PHQ-9 Depression Total Score: 0 06/03/20 3:13 PM PDT documented as of this encounter Care Teams Caseworker Intake Relationship Specialty Start Date End Date Dasha Martínez PA [facility] [address] [place] [address] PCP - General Primary Care 11/02/23 documented as of this encounter
--- OUTSIDE RECORDS SUMMARY | 2024-11-22 21:21 | XMS_ITS | Encounter Summary ---
Author Organization [facility] Address [address] [place] [address] Care Team Providers Care Medical Device Sales Consultant Name Role Phone Dasha Martínez Primary Care Provider [phone] Encounter Details Date Type Department Care Team (Late st Contact Info) Description 10/27/2024 Interim Notes [facility] [address] [place] [phone] [address] [place], [place] [address] [place] [address] Social History Tobacco Use Types Packs/Day Years [...] AM PST documented as of this encounter Progress Notes * Verna Young MA - 10/27/2024 8:26 AM EST Omnipod 5 pods pa approved documented in this encounter Plan of Treatment Upcoming Encounters Date Type Department Care Team (Late st Contact Info) Description 12/23/2024 3:40 PM EDT Office Visit [facility] [address] [place] [phone] Hussein Carrasquillo, SulyD [address] [place] [address] documented as of this encounter Goals Goal Patient Goal Type Associated Problems Recent Progress Patient-Stated? Author Weight < 200 lb (90.719 kg) Weight 202 lb 9.6 oz (91.9 kg)( 3:12 PM EST) No Kayce Kennedy PA-C Note: Samantha has committed to decreasing her snacking throughout the day Samantha has committed to decreasing her consumption of sugared beverages Samantha has committed to continuing to check her blood sugars and bolus insulin from her pump documented as of this encounter Visit Diagnoses Not on filedocumented in this encounter Additional Health Concerns Assessment Noted Time PHQ-9 Depression Total Score: 0 06/03/20 24 3:13 PM PDT documented as of this encounter Care Teams Medical Device Sales Consultant Relationship Specialty Start Date End Date Dasha Martínez PA [address] [place] [address] PCP - General Primary Care 11/02/23 documented as of this encounter
--- OUTSIDE RECORDS SUMMARY | 2024-11-22 21:21 | XMS_ITS | Encounter Summary ---
Author Organization [facility] Address [address] [place] [address] Care Team Providers Care Atmospheric Drier Tender Name Role Phone Dasha Martínez Primary Care Provider [phone] Reason for Referral * Allergy Medicine (Routine) - Pending Review Specialty Diagnoses / Procedures Referred By Debra cuellar Referred To Contact Diagnoses Allergic rhinitis, unspecified seasonality, unspecified trigger Enma Persaud NP [address] [place] [address] Phone: tel: fax: OTHER Referral ID Status Reason Start Date Expiration Date Visits Requested Visits Authorized [id number] Pending Review Specialty Services Required 11/21/2024 11/21/2025 1 1 Comments Wants inj for allergies please eval * Behavioral Health (Routine) - New Request Specialty Diagnoses / Procedures Referred By Debra cuellar Referred To Contact Mental Health Diagnoses RAUL (generalized anxiety disorder) Sleep disturbance Anxiety and depression Enma Persaud NP [address] [place] [address] Phone: tel: fax: [address] [phone] Phone: tel: fax: Referral ID Status Reason Start Date Expiration Date Visits Requested Visits Authorized [id number] New Request Mental Health 11/21/2024 11/21/2025 1 1 Comments Reason for Referral: Raul and trouble focusing PHQ9 Little interest or pleasure in doing things Not at all at 06/03/2024 3:13 PM Feeling down, depressed or hopeless [include irritable if under 18] Not at all at 06/03/2024 3:13 PM Trouble falling or staying asleep, or sleeping too much Not at all at 06/03/2024 3:13 PM Feeling tired or having little energy Not at all at 06/03/2024 3:13 PM Poor appetite or overeating Not at all at 06/03/2024 3:13 PM Feeling bad about yourself - or that you are a failure or have let yourself or your family down Not at all at 06/03/2024 3:13 PM Trouble concentrating on things like school work, reading or watching TV? Not at all at 06/03/2024 3:13 PM Moving or speaking so slowly that other people could have noticed? Or the opposite - being so fidgety or restless that you have been moving around a lot more than usual Not at all at 06/03/2024 3:13 PM Thoughts you would be better off or of hurting yourself in some way Not at all at 06/03/2024 3:13 PM If you checked off any problems, how difficult have these problems made it for you to do your work, take care of things at home, or get along with other people? Not difficult at all at 06/03/2024 3:13 PM PHQ-9 Total Score (Auto Calculated) 0 at 06/03/2024 3:13 PM Depression Severity: None-minimal at 06/03/2024 3:13 PM GAD7 Feeling nervous, anxious, or on edge: More than half the days at 12/30/2021 3:38 PM Not being able to stop or control worrying: Several days at 12/30/2021 3:38 PM Worrying too much about different things: Several days at 12/30/2021 3:38 PM Trouble relaxing: Several days at 12/30/2021 3:38 PM Being so restless that it is hard to sit still: Several days at 12/30/2021 3:38 PM Becoming easily annoyed or irritable: Several days at 12/30/2021 3:38 PM Feeling afraid, as if something awful might happen: Not at all at 12/30/2021 3:38 PM RAUL-7 Total (!) 7 at 12/30/2021 3:38 PM Anxiety Severity: Mild Anxiety at 12/30/2021 3:38 PM Difficulty: Not difficult at all at 12/30/2021 3:38 PM Encounter Details Date Type Department Care Team (Late st Contact Info) Description 11/21/2024 4:20 PM EST Office Visit [facility] [address] [place] [address] Enma Persaud NP [address] [place] [address] RAUL (generalized anxiety disorder) (Primary Dx); Sleep disturbance; Anxiety and depression; Allergic rhinitis, unspecified seasonality, unspecified trigger Social History Tobacco Use Types Packs/Day Years [...] Sign Reading Time Taken Comments Blood Pressure 104/72 11/21/2024 3:12 PM EST Pulse 92 11/21/2024 3:12 PM EST Temperature 36.3 ??C (97.3 ??F) 11/21/2024 3:12 PM ES T Respiratory Rate - - Oxygen Saturation - - Inhaled Oxygen Concentration - - Weight 91.9 kg (202 lb 9.6 oz) 11/21/2024 3:12 P M EST Height - - Body Mass Index 38.28 11/07/2024 3:43 PM EST documented in this encounter Progress Notes * Enma Persaud NP - 11/21/2024 3:27 PM EST Subjective: CC: No chief complaint on file. HPI: Samantha Daniel is a 39 year old female patient who presents as same day appointment for evaluation ofexpressed a desire to resume taking hydroxyzine for anxiety, which she has not been on for a while.She mentioned using hydroxyzine at night to help with sleep, as it makes her tired. She does not feel the need to take it every day but uses it to help refocus for homework. Samantha also reported having chronic allergic rhinitis and seasonal allergies, and she is allergic to pet dander. She is interested in starting allergy shots, although she has never had them before.. Review of Systems ROS negative unless otherwise specified please review HPI Allergies Allergen Reactions Banana Unknown Tingling of lips Patient Active Problem List Diagnosis Anxiety and depression GERD (gastroesophageal reflux disease) Colitis Sleep disturbance Allergic rhinitis Immune to rubella Class 2 obesity due to excess calories without serious comorbidity with body mass index (BMI) of 37.0 to 37.9 in adult Food allergy Uncontrolled type 2 diabetes mellitus with hyperglycemia, with long-term current use of insulin ([facility]) LTBI (latent tuberculosis infection) Financial difficulties Lack of access to transportation 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 with body mass index (BMI) of 38.0 to 38.9 in adult History of gonorrhea Current Outpatient Medications: hydrOXYzine HCL (ATARAX) 25 mg tablet, Take 1 Tablet by mouth once daily as needed for anxiety, Disp: 15 Tablet, Rfl: 0 dulaglutide (TRULICITY) 1.5 mg/0.5 mL pen injector, Inject 1.5 mg into the skin once a week, Disp: 2 mL, Rfl: 2 insulin lispro (HUMALOG) 100 unit/mL injection, USE with Pump UP TO 100 UNITS DAILY, Disp: 30 mL, Rfl: 3 insulin glargine (LANTUS SOLOSTAR U-100 INSULIN) 100 unit/mL (3 mL) pen, Inject 28 Units into the skin 2 (two) times daily DXE11.65, Disp: 15 mL, Rfl: 3 insulin lispro 100 unit/mL injection pen, Inject 10-15 Units into the skin 3 (three) times daily before meals Regular Meal;10 units, Bigger Meal or BG>300;15 units (Max 45u/dAY) DXE11.65, Disp: 15mL, Rfl: 0 melatonin 3 mg tablet, Take 1 Tablet by mouth nightly at bedtime as needed for sleep, Disp: 90 Tablet, Rfl: 1 atorvastatin (LIPITOR) 20 mg tablet, Take 1 Tablet by mouth nightly at bedtime for 120 days, Disp: 30 Tablet, Rfl: 3 cholecalciferol (VITAMIN D-3) 50 mcg (2,000 unit) capsule, Take 1 Capsule by mouth once daily, Disp: 90 Capsule, Rfl: 1 blood-glucose meter,continuous (DEXCOM G6 SR. LOGISTICS ANALYST) misc, Use frequently to monitor blood glucose readings (Dexcom G6 director physical), Disp: 1 Each, Rfl: 0 blood-glucose sensor (DEXCOM G6 SENSOR) [place], Change sensor every 10 days UD. DXE11.65, Disp: 3 Each, Rfl: 11 blood-glucose transmitter (DEXCOM G6 TRANSMITTER) [place], For blood glucose monitoring, Disp: 1 Each,Rfl: 11 insulin pump cart,auto,BT-cntr (OMNIPOD 5 G6 INTRO KIT, GEN 5,) crtg, Use to administer insulin. Change every 3 days, Disp: 1 Each, Rfl: 0 insulin pump cart,automated,BT (OMNIPOD 5 G6 PODS, GEN 5,) crtg, Use to administer insulin. Change every 3 days, Disp: 3 Each, Rfl: 11 glucose 4 gram chewable tablet, Place 4 Tablets into mouth, chew and swallow as needed for low blood sugar (below 70) DXE11.65, Disp: 50 Tablet, Rfl: 5 pen needle, diabetic (BD ULTRA-FINE CISCO PEN NEEDLE) 32 gauge x 5/32 ndle, Use to inject insulin 5x/d UD DXE11.65, Disp: 400 Each, Rfl: 11 alcohol swabs, Use to clean skin 4x/d DXE11.65, Disp: 200 Each, Rfl: 5 Objective: Vitals: 11/21/24 1512 BP: 104/72 Pulse: 92 Temp: 97.3 ??F (36.3 ??C) TempSrc: Oral Weight: 202 lb 9.6 oz (91.9 kg) Physical Exam Vitals reviewed. Constitutional: General: She is not in acute distress. Appearance: Normal appearance. She is not ill-appearing. Cardiovascular: Rate and Rhythm: Normal rate and regular rhythm. Heart sounds: Normal heart sounds. No murmur heard. No friction rub. No gallop. Pulmonary: Effort: Pulmonary effort is normal. No respiratory distress. Breath sounds: Normal breath sounds. No wheezing. Skin: Capillary Refill: Capillary refill takes less than 2 seconds. Neurological: Mental Status: She is alert and oriented to person, place, and time. Psychiatric: Mood and Affect: Mood normal. Behavior: Behavior normal. Thought Content: Thought content normal. Judgment: Judgment normal. Assessment and Plan: Samantha Daniel is a 39 year old female patient who presents as same day appointment for evaluation of. F41.1 RAUL (generalized anxiety disorder) (primary encounter diagnosis) Plan : HYDROXYZINE HCL 25 MG TABLET - Take 1 Tablet by mouth once daily as needed for anxiety REFERRAL TO BEHAVIORAL HEALTH COUNSELING G47.9 Sleep disturbance Plan : HYDROXYZINE HCL 25 MG TABLET - Take 1 Tablet by mouth once daily as needed for anxiety REFERRAL TO BEHAVIORAL HEALTH COUNSELING F41.9,F32.A Anxiety and depression Plan : HYDROXYZINE HCL 25 MG TABLET - Take 1 Tablet by mouth once daily as needed for anxiety REFERRAL TO BEHAVIORAL HEALTH COUNSELING J30.9 Allergic rhinitis, unspecified seasonality, unspecified trigger Plan : REFERRAL TO ALLERGY CLINIC Anxiety - Anxiety managed with hydroxyzine, which can be taken at night for sleep and anxiety. - Prescribe hydroxyzine once a day as needed. Referral to a psychiatrist or psychologist for further evaluation and potential treatment for focus issues. Allergic Rhinitis - Chronic history of runny nose and seasonal allergies. - Referral to a separate department for allergy shots. Follow Up: No follow-ups on file. documented in this encounter Plan of Treatment Upcoming Encounters Date Type Department Care Team (Late st Contact Info) Description 12/23/2024 3:40 PM EDT Office Visit [facility] [address] [place] [address] Hussein Carrasquillo, Jennifer [address] [place] [address] Scheduled Referrals Name Type Priority Associated Diagnoses Orde r Schedule REFERRAL TO BEHAVIORAL HEALTH COUNSELING Referral Routine RAUL (generalized anxiety disorder) Sleep disturbance Anxiety and depression Ordered: 11/21/2024 REFERRAL TO ALLERGY CLINIC Referral Routine Allergic rhinitis, unspecified seasonality, unspecified trigger Ordered: 11/21/2024 documented as of this encounter Goals Goal Patient Goal Type Associated Problems Recent Progress Patient-Stated? Author Weight < 200 lb (90.719 kg) Weight 202 lb 9.6 oz (91.9 kg)( 3:12 PM EST) Kayce You PA-C Note: Samantha has committed to decreasing her snacking throughout the day Samantha has committed to decreasing her consumption of sugared beverages Samantha has committed to continuing to check her blood sugars and bolus insulin from her pump documented as of this encounter Visit Diagnoses Diagnosis RAUL (generalized anxiety disorder)- Primary Generalized anxiety disorder Sleep disturbance Sleep disturbance, unspecified Anxiety and depression Dysthymic disorder Allergic rhinitis, unspecified seasonality, unspecified trigger documented in this encounter Additional Health Concerns Assessment Noted Time PHQ-9 Depression Total Score: 0 06/03/20 24 3:13 PM PDT documented as of this encounter Care Teams Atmospheric Drier Tender Relationship Specialty Start Date End Date Dasha Martínez PA [address] [place] [address] PCP - General Primary Care 11/02/23 documented as of this encounter
--- OUTSIDE RECORDS SUMMARY | 2024-11-22 21:21 | XMS_ITS | Clinical Summary ---
Author Organization [facility] Address [address] [place] [address] Care Team Providers Care Insurance Checker Name Role Phone Dasha Martínez Primary Care Provider Source Comments PLEASE NOTE, if this patient is a minor, it may be UNLAWFUL to discuss sensitive information that is contained in these records (such as FAMILY PLANNING, MENTAL HEALTH or SUBSTANCE ABUSE) with the minor patient's parent or other person without the patient's specific authorization.[facility] Allergies Active Allergy Reactions Criticality Noted Date Comments Banana Unknown 05/29/2022 Tingling of lips Medications alcohol swabsIndication s:Type 2 diabetes mellitus with hyperglycemia, unspecified whether longterm insulin use ([facility]) Use to clean skin 4x/d DXE11.65 200 Each 5 2 Active pen needle, diabetic (BD ULTRA-FINE CISCO PEN NEEDLE) 32 gauge x 5/32 ndleIndications :Uncontrolled type 2 diabetes mellitus with hyperglycemia, with long-term current use of insulin ([facility]) Use to inject insulin 5x/d UD DXE11.65 400 Each 11 3 Active glucose 4 gram chewable tabletIndicatio ns:Type 2 diabetes mellitus with hyperglycemia, unspecified whether intermediate school teacher insulin use ([facility]) Place 4 Tablets into mouth, chew and swallow as needed for low blood sugar (below 70) DXE11.65 50 Tablet 5 4 Active blood-glucose sensor (DEXCOM G6 SENSOR) deviIndications :Uncontrolled type 2 diabetes mellitus with hyperglycemia, with long-term current use of insulin ([facility]) Change sensor every 10 days UD. DXE11.65 3 Each 11 4 Active blood-glucose transmitter (DEXCOM G6 TRANSMITTER) deviIndications :Uncontrolled type 2 diabetes mellitus with hyperglycemia, with long-term current use of insulin ([facility]) For blood glucose monitoring 1 Each 11 4 Active blood-glucose meter,continuou s (DEXCOM G6 MANAGER OF ALLIED HEALTH SERVICES) miscIndications :Uncontrolled type 2 diabetes mellitus with hyperglycemia, with long-term current use of insulin ([facility]) Use frequently to monitor blood glucose readings (Dexcom G6 veneer trimmer) 1 Each 4 Active insulin pump cart,automated, BT (OMNIPOD 5 G6 PODS, GEN 5,) crtgIndications :Uncontrolled type 2 diabetes mellitus with hyperglycemia, with long-term current use of insulin ([facility]) Use to administer insulin. Change every 3 days 3 Each 11 4 Active insulin pump cart,auto,BT-cn tr (OMNIPOD 5 G6 INTRO KIT, GEN 5,) crtgIndications :Uncontrolled type 2 diabetes mellitus with hyperglycemia, with long-term current use of insulin ([facility]) Use to administer insulin. Change every 3 days 1 Each 4 Active cholecalciferol (VITAMIN D-3) 50 mcg (2,000 unit) capsuleIndicati ons:Vitamin D deficiency Take 1 Capsule by mouth once daily 90 Capsule 1 4 Active atorvastatin (LIPITOR) 20 mg tabletIndicatio ns:Controlled type 2 diabetes mellitus without complication, with long-term current use of insulin ([facility]),Hyper lipidemia associated with type 2 diabetes mellitus ([facility]) Take 1 Tablet by mouth nightly at bedtime for 120 days 30 Tablet 3 4 Active melatonin 3 mg tabletIndicatio ns:Prescription refill Take 1 Tablet by mouth nightly at bedtime as needed for sleep 90 Tablet 1 4 Active insulin lispro 100 unit/mL injection penIndications: Uncontrolled type 2 diabetes mellitus with hyperglycemia, with long-term current use of insulin ([facility]) Inject 10-15 Units into the skin 3 (three) times daily before meals Regular Meal;10 units, Bigger Meal or BG>300;15 units (Max 45u/dAY) DXE11.65 15 mL 5 Active insulin glargine (LANTUS SOLOSTAR U-100 INSULIN) 100 unit/mL (3 mL) penIndications: Uncontrolled type 2 diabetes mellitus with hyperglycemia, with long-term current use of insulin ([facility]) Inject 28 Units into the skin 2 (two) times daily DXE11.65 15 mL 3 5 Active dulaglutide (TRULICITY) 1.5 mg/0.5 mL pen injectorIndicat ions:Uncontroll ed type 2 diabetes mellitus with hyperglycemia, with long-term current use of insulin ([facility]) Inject 1.5 mg into the skin once a week 2 mL 2 5 Active insulin lispro (HUMALOG) 100 unit/mL injectionIndica tions:Uncontrol led type 2 diabetes mellitus with hyperglycemia, with long-term current use of insulin ([facility]) USE with Pump UP TO 100 UNITS DAILY 30 mL 3 5 Active hydrOXYzine HCL (ATARAX) 25 mg tabletIndicatio ns:JAMES (generalized anxiety disorder),Sleep disturbance,Anx iety and depression Take 1 Tablet by mouth once daily as needed for anxiety 15 Tablet 5 Active FLUoxetine (PROZAC) 40 mg capsuleIndicati ons:Anxiety and depression Take 1 Capsule by mouth once daily 90 Capsule 3 11/07/19 25 Discontin ued(Outda jaclyn-Remov ed from Med List (E-Cancel Not Sent)) insulin lispro (HUMALOG) 100 unit/mL injectionIndica tions:Uncontrol led type 2 diabetes mellitus with hyperglycemia, with long-term current use of insulin ([facility]) USE with Pump UP TO 100 UNITS DAILY 30 mL 2 4 11/07/19 25 Discontin ued(Reord er (E-Cancel Not Sent)) dulaglutide (TRULICITY) 0.75 mg/0.5 mL pen injectorIndicat ions:Uncontroll ed type 2 diabetes mellitus with hyperglycemia, with long-term current use of insulin ([facility]) Inject 0.75 mg into the skin once a week 2 mL 2 4 11/07/19 25 Discontin ued(Quant ity/Dosag e and/or Sig change) Active Problems Problem Noted Date Diagnosed Date History of gonorrhea 09/13/2024 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 serious comorbidity with body mass index (BMI) of 38.0 to 38.9 in adult 06/29/2024 Financial difficulties 05/26/2024 Lack of access to transportation 05/26/2024 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 Uncontrolled type 2 diabetes mellitus with hyperglycemia, with long-term current use of insulin ([facility]) 06/11/2023 Class 2 obesity due to exces s calories without serious comorbidity with body mass index (BMI) of 37.0 to 37.9 in adult 05/29/2022 Food allergy 05/29/2022 Immune to rubella 01/29/2016 Overview (01/29/2016): As per labs 01/29/16 Allergic rhinitis 12/24/2015 Sleep disturbance 10/27/2014 Colitis 05/09/2014 GERD (gastroesophageal reflux disease) 4 Anxiety and depression 02/24/2013 Overview (12/24/2015): Psych f/u at [facility] [address] Resolved Problems Problem Noted Date Diagnosed Date Resolved Date Homelessness 11/18/2018 11/14/2019 Immune to varicella 01/29/2016 04/29/20 Overview (01/29/2016): As per labs 01/29/16 Immune to mumps 01/29/2016 04/29/2023 Overview (01/29/2016): As per labs 01/29/16 Sandie vaginitis 07/20/2013 12/24/2015 Type 2 diabetes mellitus wit h hyperglycemia, with long-term current use of insulin ([facility]) 02/24/2013 06/11/2023 Encounters Date Type Department Care Team Description 11/21/2024 4:20 PM EST Office Visit [address] [address] Enma Persaud NP JAMES (generalized anxiety disorder) (Primary Dx); Sleep disturbance; Anxiety and depression; Allergic rhinitis, unspecified seasonality, unspecified trigger 11/07/2024 3:20 PM EST Office Visit [address] [place] [address] Hussein Carrasquillo, Jennifer Uncontrolled type 2 diabetes mellitus with hyperglycemia, with long-term current use of insulin ([facility]) (Primary Dx); Class 2 obesity due to excess calories without serious comorbidity with body mass index (BMI) of 38.0 to 38.9 in adult 10/27/2024 Interim Notes [address] [address] Verna Young [place] 09/13/2024 9:00 AM EST Office Visit [address] [address] Loraine Bradley MD Encounter for Papanicolaou smear of vagina as part of routine gynecological examination (Primary Dx); Encounter for screening for human papillomavirus (HPV); Screening for STDs (sexually transmitted diseases); History of gonorrhea; History of tubal ligation; Folliculitis; Bilateral breast lump 09/13/2024 Travel from Last 3 Months Immunizations Name Administration Dates Next Due Flu, Cell Culture based, Mul ti Dose, 6m+, Flucelvax 06/13/2019 Flu, Cell Culture based, Pre servative Free, 6m+, Flucelvax 07/19/2020 Flu, Preservative Free 06/11/2023,07/04/2022,02/2022 Hep A, adult 04/29/2023,01/03/2022 INFLUENZA, SEASONAL, INJECTABLE 07/11/20 15,07/27/2012,07/26/2010,06/22,07/18/2004 Influenza (FLUBLOK),recombinant,injectable,prese rvative Free 06/03/2024 MMR (MMR II/Priorix) 01/31/2016 Moderna COVID-19 Vaccine, re d cap blue label, 12+ Primary Series 11/08/2021,11/27/2020,10/29/2020 PNEUMOCOCCAL CONJUGATE PCV 2 0 (Prevnar) 04/29/2023 PNEUMOCOCCAL POLYSACCHARIDE PPV23 01/03/2022 Pfizer-BioNTech COVID-19 Vac cine Bivalent, (LARA PFIZER-BIONTECH COVID-19 VACCINE BIVALENT, (LARA CAP 07/04/2022 TDAP 06/20/2015,07/24/2011 Social History Tobacco Use Types Packs/Day Years Used Date Smoking Tobacco: Never Smokeless Tobacco: Never Tobacco Cessation:Counseling Given: Yes Alcohol Use Standard Drinks/Week Comments No 0 [...] Orientation Straight 09/04/2017 11 :24 AM PST Last Filed Vital Signs Vital Sign Reading Time Taken Comments Blood Pressure 104/72 11/21/2024 3:12 PM EST Pulse 92 11/21/2024 3:12 PM EST Temperature 36.3 ??C (97.3 ??F) 11/21/2024 3:12 PM ES T Respiratory Rate 18 11/07/2024 3:43 PM EST Oxygen Saturation 99% 11/07/2024 3:43 PM EST Inhaled Oxygen Concentration - - Weight 91.9 kg (202 lb 9.6 oz) 11/21/2024 3:12 P M EST Height 154.9 cm (5' 1 ) 11/07/2024 3:43 PM EST Body Mass Index 38.28 11/07/2024 3:43 PM EST Plan of Treatment Upcoming Encounters Date Type Department Care Team (Late st Contact Info) Description 12/23/2024 3:40 PM EDT Office Visit [facility] [address] [place] [address] Hussein Carrasquillo, PharmD [address] [place] [address] Health Maintenance Due Date Last Done Comments Dental Examination 1987 HPV Screening 1987 Diabetes Foot Exam 04/29/2024 04/29/2023, 12/30/2021 Retinopathy Screening 08/19/2024 08/19/2023 , 02/15/2018 (Managed by Outside Provider), 07/17/2015 Depression Monitoring 09/02/2024 06/03/2024 , 07/30/2023, 04/29/2023, Additional history exists Alcohol and Drug Screen 09/28/2024 06/03/20, 04/29/2023, 12/30/2021, Additional history exists [id number] ( season) 2024 07/04/2022, 11/08/2021, 11/27/2020, Additional history exists Postponed from 05/29/2024 (Patient postponement) Diabetes HbA1c 02/04/2025 11/07/2024, 090 11/2023, 09/11/2023, Additional history exists Diabetes Microalbumin (w/Creatinine) 05/31/2025 05/31/2024, 04/30/2023, 03/15/2021, Additional history exists Relationship Safety Screening/Counseling 06/03/2025 06/03/2024, 04/29/2023, 05/31/2021, Additional history exists Imm-DTaP/Tdap/Td (3 - Td or Tdap) 06/20/2025 06/20/2015, 07/24/2011 Tobacco Screening 08/11/2025 08/11/2024, , 12/30/2021 Serum Creatinine 09/06/2025 09/06/2024, 11/2023, 04/30/2023, Additional history exists Annual Preventive Care Visit 09/13/2025 09/13/2024, 04/29/2023, 12/30/2021, Additional history exists Hypertension Screening (#1) 11/21/2025 Lipid Screening 05/31/2027 05/31/2024, 08/0 11/2022, 03/14/2022, Additional history exists Pap Smear 09/13/2027 09/13/2024, 08/28, 07/16/2020, Additional history exists Cervical Cancer Screening 09/13/2029 Pap + HPV 09/13/2029 09/13/2024, 08/28, 07/16/2020, Additional history exists Hepatitis C Screening Completed 01/29/2016, 015 HIV Screening Completed 12/09/2021, 03/02/2015 Imm-Hepatitis A Completed 04/29/2023, 01/03/2022 Imm-Pneumococcal Completed 04/29/2023, 01/03/2022 Imm-Influenza Completed 06/03/2024, 05/29, 07/04/2022, Additional history exists Cervical Ablation/Cold-Knife Conization Discontinued Cervical Cryotherapy Discontinued Colposcopy Discontinued Endometrial Biopsy Discontinued Excision/Leep Discontinued HPV Genotyping Discontinued Imm-Hepatitis B Discontinued Vaginal Pap Discontinued Vulvoscopy Discontinued Goals Goal Patient Goal Type Associated Problems [...] sugars and bolus insulin from her pump Procedures Procedure Name Priority Date/Time Associated Diagnosis Comments GLYCOSYLATED (A1C) DEVICE (CLIA WAIVED) POCT Routine 11/07/2024 3:54 PM EST Uncontrolled type 2 diabetes mellitus with hyperglycemia, with long-term current use of insulin ([facility]) GLUCOSE, BLOOD BY GLUCOSE MONITORING DEVICE (CLIA WAIVED)POCT Routine 11/07/2024 3:49 PM EST Uncontrolled type 2 diabetes mellitus with hyperglycemia, with long-term current use of insulin ([facility]) IMAGING SCANNED DOCUMENT 10/11/2024 3:00 AM EST REFERRAL FOR DIAGNOSTIC MAMMOGRAM Routine 10/11/2024 3:00 AM EST Bilateral breast lump THINPREP IMAGING PAP, HPV MRNA E6/E7 RFLEX HPV 16,18/45 CT/NG Routine 09/13/2024 9:31 AM EST Encounter for Papanicolaou smear of vagina as part of routine gynecological examination Encounter for screening for human papillomavirus (HPV) PAP W/ HPV 09/13/2024 3:00 AM EST COMPREHENSIVE METABOLIC PANEL Routine 05/31/2024 9:19 AM EDT Uncontrolled type 2 diabetes mellitus with hyperglycemia, with long-term current use of insulin ([facility]) LIPID PANEL Routine 05/31/2024 9:19 AM EDT Uncontrolled type 2 diabetes mellitus with hyperglycemia, with long-term current use of insulin ([facility]) MICROALBUMIN/CREATINI NE RATIO, URINE, RANDOM Routine 05/31/2024 9:19 AM EDT Uncontrolled type 2 diabetes mellitus with hyperglycemia, with long-term current use of insulin ([facility]) EYE EXAM 08/19/2023 3:00 AM EST HIV 1/2 AG & AB W/RFLX (4TH GEN) Routine 12/09/2021 9:04 AM EDT Concern about STD in female without diagnosis HEPATITIS A,B,C PANEL Routine 01/29/2016 9:50 AM EDT Routine general medical examination at a health care facility from Last 3 Months or Most Recently Relevant to Health Maintenance Results * (ABNORMAL) GLYCOSYLATED (A1C) DEVICE (CLIA WAIVED) POCT (11/07/2024 3:54 PM EST) HGB A1C 9.6(A) 4.2 - 6.5 % [facility] BACK OFFICE POCT Capillary Blood Blood / Unknown 3:54 PM EST us Hussein Rogers PharmD LAB - BLOOD D RAW Final Result [facility] BACK OFFICE POCT * (ABNORMAL) GLUCOSE, BLOOD BY GLUCOSE MONITORING DEVICE (CLIA WAIVED)POCT (11/07/2024 3:49 PM EST) GLUCOSE 145(A) 70 - 100 mg/dL [facility] BACK OFFICE POCT Capillary Blood Blood / Unknown 3:49 PM EST Hussein Rogers PharmD LAB - BLOOD D RAW Final Result [facility] BACK OFFICE POCT * REFERRAL FOR DIAGNOSTIC MAMMOGRAM (10/11/2024 3:00 AM EST) 10/11/2024 3:00 AM EST Loraine Bradley MD IMG RFL MAMMO Final Result * IMAGING SCANNED DOCUMENT (10/11/2024 3:00 AM EST) 10/11/2024 3:00 AM EST Jesenia Gilmore PA-C SCAN IMAGING Final Result * THINPREP IMAGING PAP, HPV MRNA E6/E7 RFLEX HPV 16,18/45 CT/NG (09/13/2024 9:31 AM EST) Pathologist [facility] CHLAMYDIA TRACHOMATIS RNA, TMA NOT DETECTED NOT DETECTED [facility] NEISSERIA GONORRHOEAE RNA, TMA NOT DETECTED NOT DETECTED [facility] COMMENT [facility] CLINICAL INFORMATION See Note [facility] Comment:None given LMP See Note [facility] Comment:09/03/2024 PREV. PAP See Note [facility] Comment:NONE GIVEN PREV. BX See Note [facility] Comment:NONE GIVEN SOURCE See Note [facility] Comment:Cervix, Endocervix STATEMENT OF ADEQUACY See Note [facility] Comment: Satisfactory for evaluation. Endocervical/transformation zone component absent. INTERPRETATION/RESU LT See Note [facility] Comment: Cytology Results: Negative for intraepithelial lesion or malignancy. INFECTION See Note [facility] Comment: Shift in vaginal mirna suggestive of bacterial vaginosis. COMMENT See Note [facility] Comment: This Pap test has been evaluated with computer assisted technology. PHILOSOPHY AND RELIGION INSTRUCTOR See Note [facility] [employer] [facility] Comment: DMM, CT(ASCP) CT screening location: [address] ??[address] COMMENT [facility] HPV MRNA E6/E7 Not Detected Not Detected [facility] Comment: Methodology: Education Supervisor-Mediated Amplification This assay detects E6/E7 viral messenger RNA (mRNA) from 14 high-risk HPV types (16,18,31,33,35,39,45,51,52,56,58,59,66,68). Cervical sources are required for HPV testing. If a vaginal source from a patient who has had a total hysterectomy with removal of cervix was submitted, please contact the testing laboratory for alternative testing options. For additional information, please refer to http://[employer].com.[employer]/faq/AIP457j9 (This link if provided for information/ educational purposes only.) Swab Cervix uteri structure / Unknown 09/13/2024 9:31 AM EST 09/14/2024 7:16 AM EST Narrative [employer] - 09/16/2024 6:41 PM EST EXPLANATORY NOTE: The Pap is a screening test for cervical cancer. It is not a diagnostic test and is subject to false negative and false positive results. It is most reliable when a satisfactory sample, regularly obtained, is submitted with relevant clinical findings and history, and when the Pap result is evaluated along with historic and current clinical information. The analytical performance characteristics of this assay, when used to test SurePath(TM) specimens have been determined by [employer]. The modifications have not been cleared or approved by the FDA. This assay has been validated pursuant to the CLIA regulations and is used for clinical purposes. For additional information, please refer to https://[employer].com.[employer]/faq/MOB838 (This link is being provided for information/ educational purposes only.) Loraine Bradley MD LAB - NO BLOOD DRAW Final Result [facility] [address] [address], [employer] [address] [address] * PAP W/ HPV (09/13/2024 3:00 AM EST) 09/13/2024 3:00 AM EST Loraine Bradley MD LAB - NO BLOOD DRAW Final Result * (ABNORMAL) MICROALBUMIN/CREATININE RATIO, URINE, RANDOM (05/31/2024 9:19 AM EDT) CREATININE, RANDOM URINE 177 20 - 275 mg/dL [facility] MICROALBUMIN 6.1 mg/dL [employer] [facility] [employer] [facility] Comment: Reference Range Not established MICROALBUMIN/CREA TININE RATIO, RANDOM URINE 34(H) <30 mg/g creat [facility] Comment: The ADA defines abnormalities in albumin excretion as follows: Albuminuria Category ?Result (mg/g creatinine) Normal to Mildly increased ?? <30 Moderately increased ? 30-299 Severely increased ? > OR = 300 The ADA recommends that at least two of three specimens collected within a 3-6 month period be abnormal before considering a patient to be within a diagnostic category. Urine Urine specimen / Unknown 05/31/2024 9:19 AM EDT 05/31/2024 9:19 AM EDT Narrative [employer] [facility] - 06/01/2024 5:41 PM EDT FASTING:NO Hussein Rogers PharmD LAB - NO BLOO D DRAW Final Result Performing Organization Address City/[facility]/ZIP Co de Phone Number [employer] [facility] [address] [address], [employer] [address] [address] * (ABNORMAL) LIPID PANEL (05/31/2024 9:19 AM EDT) CHOLESTEROL, TOTAL 217(H) <200 mg/dL [facility] HDL CHOLESTEROL 51 > OR = 50 mg/dL [facility] TRIGLYCERIDES 251(H) <150 mg/dL [facility] Comment: If a non-fasting specimen was collected, consider repeat triglyceride testing on a fasting specimen if clinically indicated. Brunilda et al. J. of Clin. Lipidol. 2015;9:129-169. LDL-CHOLESTEROL 127(H) 99 mg/dL (calc) [facility] Comment: Reference range: <100 Desirable range <100 mg/dL for primary prevention; ?? <70 mg/dL for patients with CHD or diabetic patients with > or = 2 CHD risk factors. LDL-C is now calculated using the Marie calculation, which is a validated novel method providing better accuracy than the Friedewald equation in the estimation of LDL-C. Benson TYSON et al. SAM. 2013;310(19): 7230-6520 (http://education.[employer]/faq/JHZ289) CHOL/HDLC RATIO 4.3 <5.0 (calc) [facility] NON-HDL CHOLESTEROL 166(H) <130 mg/dL (calc) [facility] Comment: For patients with diabetes plus 1 major ASCVD risk factor, treating to a non-HDL-C goal of <100 mg/dL (LDL-C of <70 mg/dL) is considered a therapeutic option. Blood Blood / Unknown 05/31/2024 9 :19 AM EDT 05/31/2024 9:19 AM EDT Narrative [facility] [facility] - 06/01/2024 5:41 PM EDT FASTING:NO Hussein Rogers PharmD LAB - BLOOD D RAW Final Result [facility] [address] [address], [employer] [facility] [address] [place] [address] * (ABNORMAL) COMPREHENSIVE METABOLIC PANEL (05/31/2024 9:19 AM EDT) GLUCOSE 145(H) 65 - 139 mg/dL [facility] Comment: ?Non-fasting reference interval UREA NITROGEN (BUN) 21 7 - 25 mg/dL [facility] CREATININE (blood) 0.90 0.50 - 0.97 mg/dL [facility] EGFR 84 > OR = 60 mL/min/1. 73m2 [facility] BUN/CREATININE RATIO SEE NOTE: [facility] Comment: ?? Not Reported: BUN and Creatinine are within ?? reference range. ? SODIUM 137 135 - 146 mmol/L [facility] POTASSIUM 4.7 3.5 - 5.3 mmol/L [facility] CHLORIDE 100 98 - 110 mmol/L [facility] CARBON DIOXIDE 25 20 - 32 mmol/L [facility] CALCIUM 9.2 8.6 - 10.2 mg/dL [facility] PROTEIN, TOTAL 7.5 6.1 - 8.1 g/dL [facility] ALBUMIN 3.9 3.6 - 5.1 g/dL [facility] GLOBULIN 3.6 1.9 - 3.7 g/dL (calc) [facility] ALBUMIN/GLOBULI N RATIO 1.1 1.0 - 2.5 (calc) [facility] BILIRUBIN, TOTAL 0.3 0.2 - 1.2 mg/dL [facility] ALKALINE PHOSPHATASE 52 31 - 125 U/L [facility] AST 11 10 - 30 U/L [facility] ALT 11 6 - 29 U/L [facility] Blood Blood / Unknown 05/31/2024 9 :19 AM EDT 05/31/2024 9:19 AM EDT Narrative [facility] - 06/01/2024 5:41 PM EDT FASTING:NO us Hussein Rogers PharmD LAB - BLOOD D RAW Edited Result - Final [facility] [address] [address], [employer] [facility] [address] [place] [address] * EYE EXAM (08/19/2023 3:00 AM EST) 08/19/2023 3:00 AM EST Karen Pate AVIONICS TEST TECHNICIAN-C OTHER Edited Resul t - Final * HIV 1/2 AG & AB W/RFLX (4TH GEN) (12/09/2021 9:04 AM EDT) HIV AG/AB, 4TH GEN NON-REAC TIVE NON-REAC TIVE [facility] Comment: HIV-1 antigen and HIV-1/HIV-2 antibodies were not detected. There is no laboratory evidence of HIV infection. PLEASE NOTE: This information has been disclosed to you from records whose confidentiality may be protected by state law. ??If your state requires such protection, then the state law prohibits you from making any further disclosure of the information without the specific written consent of the person to whom it pertains, or as otherwise permitted by law. A general authorization for the release of medical or other information is NOT sufficient for this purpose. ?? For additional information please refer to http://education.[employer]/faq/VVO274 (This link is being provided for informational/ educational purposes only.) The performance of this assay has not been clinically validated in patients less than 2 years old. Blood Blood / Unknown 12/09/2021 9 :04 AM EDT 12/09/2021 9:05 AM EDT Deedee Zaragoza PA-C LAB - BLOOD DRAW Final Resul t [facility] [address] [address] [address], [employer] [address] [address] * (ABNORMAL) HEPATITIS A,B,C PANEL (01/29/2016 9:50 AM EDT) HEPATITIS B SURFACE ANTIBODY POSITIVE(A) NEGATIVE [facility] HEPATITIS B SURFACE ANTIGEN NEGATIVE NEGATIVE [facility] HEPATITIS C VIRUS DIAGNOSTIC NEGATIVE NEGATIVE [facility] HEPATITIS B CORE ANTIBODY NEGATIVE NEGATIVE [facility] HEPATITIS A ANTIBODY TOTAL NEGATIVE NEGATIVE [facility] Blood specimen (specimen) Blood / Unknown 01/29/2016 9:50 AM EDT 01/29/2016 10:05 AM EDT Narrative [facility] 01/29/2016 1:46 PM EDT [employer] [address] [place] [address] PT ID [id number] ORD# [id number] Misael KRAMERP [facility] - BLOOD DRAW Edited Result - Final [facility] [address] [place] [address], [place] [phone] from Last 3 Months or Most Recently Relevant to Health Maintenance Insurance [employer] [facility] [employer] Care Teams Insurance Checker Relationship Specialty Start Date End Date Dasha Martínez PA [address] [place] [address] PCP - General Primary Care 11/02/23
--- OUTSIDE RECORDS SUMMARY | 2024-11-22 21:21 | XMS_ITS | Clinical Summary ---
Author Organization [facility] Address [address] [place] [address] Phone Care Team Providers Care Health Analytics Consultant Name Role Phone Jesenia Gilmore Primary Care Provider [phone] Allergies Active Allergy Reactions Criticality Noted Date Comments Banana 09/06/2024 Encounters Date Type Department Care Team Description 10/11/2024 8:55 AM EST - 10/11/2024 11:59 PM EST Hospital Encounter [facility] Ultrasound [address] [place] [address] Unspecified lump in the left breast, unspecified quadrant; Unspecified lump in the right breast, unspecified quadrant Discharge Disposition: Home or Self Care 10/11/2024 7:49 AM EST - 10/11/2024 11:59 PM EST [facility] [address] [address] Unspecified lump in the left breast, unspecified quadrant; Unspecified lump in the right breast, unspecified quadrant Discharge Disposition: Home or Self Care 09/06/2024 9:31 PM EST - 09/07/2024 1:37 AM EST Emergency [facility] Emergency [address] [place] [id number] Discharge Disposition: Left Against Medical Advice from Last 3 Months Medical History Medical History Date Comments Diabetes mellitus (CMS/HCC) Hypertension Social History Tobacco Use Types Packs/Day Years Used Date Smoking Tobacco: Never Smokeless Tobacco: Never Tobacco Cessation:Counseling Given: Not Answered Alcohol Use Standard Drinks/Week Comments Never 0 (1 standard drink = 0.6 oz pur e alcohol) Comments No Sex and Gender Information Value Date Recorded Sex Assigned at Not on file Legal Sex Female 11:32 AM EST Gender Identity Not on file Sexual Orientation Not on file Obstetrics History Para Term AB IAB SAB Ectopic Multiple Livin g Live Births 3 Last Filed Vital Signs Vital Sign Reading Time Taken Comments Blood Pressure 142/84 09/06/2024 9:55 PM EST Pulse 102 09/06/2024 9:55 PM EST Temperature 37 ??C (98.6 ??F) 09/06/2024 9:55 PM EST Respiratory Rate 20 09/06/2024 9:55 PM EST Oxygen Saturation 99% 09/06/2024 9:55 PM EST Inhaled Oxygen Concentration - - Weight 93 kg (205 lb) 10/11/2024 8:23 AM EST Height 154.9 cm (5' 1 ) 10/11/2024 8:23 AM EST Body Mass Index 38.73 10/11/2024 8:23 AM EST Plan of Treatment Health Maintenance Due Date Last Done Comments Hepatitis B Vaccines (1 of 3 - 19+ 3-dose series) 2006 Cervical Cancer Screening: Pap Smear 2008 HIV Screening 08/26/2022 Hepatitis C Screening 08/26/2022 Social Influencers of Health Screening 08/26/2022 COVID-19 Vaccine ( season) 2024 07/04/2022, 11/08/2021, 11/27/2020, Additional history exists Depression Screening 06/03/2025 06/03/2024 DTaP,Tdap,and Td Vaccines (3 - Td or Tdap) 06/20/2025 06/20/2015, 07/24/2011 Cholesterol Screening (Lipid Panel) 05/31/2029 05/31/2024, 05/31/2024, 03/14/2022, Additional history exists MMR Vaccines Aged Out 01/31/2016 No longer eligi ble based on patient's age to complete this topic Hepatitis A Vaccines Aged Out 04/29/2023, 01/04/20 No longer eligible based on patient's age to complete this topic Pneumococcal Vaccine: Pediatrics (0 to 5 Years) and At-Risk Patients (6 to 64 Years) Aged Out 04/29/2023, 01/03/2022 No longer eligibl e based on patient's age to complete this topic Influenza Vaccine Completed 06/03/2024, , 07/04/2022, Additional history exists HIB Vaccines Aged Out No longer eligi ble based on patient's age to complete this topic HPV Vaccines Aged Out No longer eligi ble based on patient's age to complete this topic IPV Vaccines Aged Out No longer eligi ble based on patient's age to complete this topic Meningococcal ACWY Vaccine Aged Out N o longer eligible based on patient's age to complete this topic Meningococcal B Vacine Aged Out No lo nger eligible based on patient's age to complete this topic RSV Immunization Patients Under 20 months Aged Out No longer eligible based on patient's age to complete this topic Varicella Vaccines Aged Out No longer eligible based on patient's age to complete this topic Procedures Procedure Name Priority Date/Time Associated Diagnosis Comments MG MAMMO DIGITAL DIAGNOSTIC W ABHILASH BILAT Routine 10/11/2024 9:18 AM EST Unspecified lump in the left breast, unspecified quadrant Unspecified lump in the right breast, unspecified quadrant US BREAST LIMITED BILAT Routine 10/11/2024 9:10 AM EST Unspecified lump in the left breast, unspecified quadrant Unspecified lump in the right breast, unspecified quadrant BETA HYDROXYBUTYRATE STAT Add-on 09/06/2024 10:23 PM EST OSMOLALITY STAT Add-on 09/06/2024 10:23 PM EST MAGNESIUM STAT Add-on 09/06/2024 10:23 PM EST LIPASE STAT Add-on 09/06/2024 10:23 PM EST CBC WITH AUTO DIFFERENTIAL STAT 09/06/2024 10:23 PM EST BASIC METABOLIC PANEL STAT 09/06/2024 10:23 PM EST CBC AND DIFFERENTIAL STAT 09/06/2024 10:23 PM EST from Last 3 Months Results * MG Mammo Digital Diagnostic w Abhilash bilat (10/11/2024 9:18 AM EST) Anatomical Region Laterality Modality Breast Bilateral Mammography 10/11/2024 9:11 AM EST Impressions 10/11/2024 9:14 AM EST No mammographic or sonographic evidence of malignancy ?? No findings which might account for palpable abnormalities on each side The patient should be managed on the basis of the clinical breast exam A negative mammogram in the presence of a clinically suspicious palpable abnormality does not preclude the possibility of malignancy or alter the indications for biopsy. ASSESSMENT: ?? BI-RADS 1: NEGATIVE RECOMMENDATION(S): 1: Clinical correlation recommended BILATERAL -------- FINAL REPORT -------- Dictated By: Dominguez Bautista Dictated Date: 10/11/2024 09:11 ET Assigned Physician: Dominguez Bautista Reviewed and Electronically Signed By: Dominguez Bautista Signed Date: 10/11/2024 09:14 ET Workstation ID: [id number] Transcribed By: Self Edit Transcribed Date: 10/11/2024 09:11 ET Narrative 10/11/2024 9:14 AM EST EXAM: ??DIAGNOSTIC MAMMOGRAPHY, BILATERAL ULTRASOUND: DIAGNOSTIC ULTRASOUND, BILATERAL HISTORY: ??Abnormal clinical breast exam. ??Abnormal abnormalities in each breast. Reportedly there were palpable abnormalities around the areola on each side. On the day of the exam the patient is unable to localize a specific palpable abnormality on either side COMPARISON: ??Initial exam TECHNIQUE: Synthesized CC and MLO projections of each breast. ??Tomosynthesis of each breast in the CC and MLO projections. ADDITIONAL IMAGING: None High-frequency linear transducer ultrasound of each breast targeted to the area of clinical concern. Computer-aided detection was employed. ??i CAD profound AI 3-D. TISSUE DENSITY: There are scattered areas of fibroglandular density. (BI-RADS category B) FINDINGS: MAMMOGRAPHY: RIGHT BREAST: No suspicious mass. No suspicious calcification. No distortion. LEFT BREAST: No suspicious mass. No suspicious calcification. No distortion. ULTRASOUND: RIGHT BREAST: The areolar region was examined with a high-frequency linear transducer. No suspicious mass. ??No suspicious area of altered echotexture. LEFT BREAST: The areolar region was examined with a high-frequency linear transducer. No suspicious mass. ??No suspicious area of altered echotexture. Procedure Note Dominguez Bautista MD - 10/11/2024 EXAM: DIAGNOSTIC MAMMOGRAPHY, BILATERAL ULTRASOUND: DIAGNOSTIC ULTRASOUND, BILATERAL HISTORY: Abnormal clinical breast exam. Abnormal abnormalities in eachbreast. Reportedly there were palpable abnormalities around the areola on eachside. On the day of the exam the patient is unable to localize a specificpalpable abnormality on either side COMPARISON: Initial exam TECHNIQUE: Synthesized CC and MLO projections of each breast.Tomosynthesis of each breast in the CC and MLO projections. ADDITIONAL IMAGING: None High-frequency linear transducer ultrasound of each breast targeted to thearea of clinical concern. Computer-aided detection was employed. i CAD profound AI 3-D. TISSUE DENSITY: There are scattered areas of fibroglandular density.(BI-RADS category B) FINDINGS: MAMMOGRAPHY: RIGHT BREAST: No suspicious mass. No suspicious calcification. No distortion. LEFT BREAST: No suspicious mass. No suspicious calcification. No distortion. ULTRASOUND: RIGHT BREAST: The areolar region was examined with a high-frequency linear transducer. No suspicious mass. No suspicious area of altered echotexture. LEFT BREAST: The areolar region was examined with a high-frequency linear transducer. No suspicious mass. No suspicious area of altered echotexture. IMPRESSION: No mammographic or sonographic evidence of malignancy No findings which might account for palpable abnormalities on each side The patient should be managed on the basis of the clinical breast exam A negative mammogram in the presence of a clinically suspicious palpableabnormality does not preclude the possibility of malignancy or alter theindications for biopsy. ASSESSMENT: BI-RADS 1: NEGATIVE RECOMMENDATION(S): 1: Clinical correlation recommended BILATERAL -------- FINAL REPORT -------- Dictated By: Dominguez Bautista Dictated Date: 10/11/2024 09:11 ET Assigned Physician: Dominguez Bautista Reviewed and Electronically Signed By: Dominguez Bautista Signed Date: 10/11/2024 09:14 ET Workstation ID: [id number] Transcribed By: Self Edit Transcribed Date: 10/11/2024 09:11 ET us Loraine Bradley MD IMG BI PROCEDURES Final Result * US Breast Limited bilat (10/11/2024 9:10 AM EST) Anatomical Region Laterality Modality Breast Bilateral Ultrasound 10/11/2024 9:11 AM EST Impressions 10/11/2024 9:14 AM EST No mammographic or sonographic evidence of malignancy ?? No findings which might account for palpable abnormalities on each side The patient should be managed on the basis of the clinical breast exam A negative mammogram in the presence of a clinically suspicious palpable abnormality does not preclude the possibility of malignancy or alter the indications for biopsy. ASSESSMENT: ?? BI-RADS 1: NEGATIVE RECOMMENDATION(S): 1: Clinical correlation recommended BILATERAL -------- FINAL REPORT -------- Dictated By: Dominguez Bautista Dictated Date: 10/11/2024 09:11 ET Assigned Physician: Dominguez Bautista Reviewed and Electronically Signed By: Dominguez Bautista Signed Date: 10/11/2024 09:14 ET Workstation ID: [id number] Transcribed By: Self Edit Transcribed Date: 10/11/2024 09:11 ET Narrative 10/11/2024 9:14 AM EST EXAM: ??DIAGNOSTIC MAMMOGRAPHY, BILATERAL ULTRASOUND: DIAGNOSTIC ULTRASOUND, BILATERAL HISTORY: ??Abnormal clinical breast exam. ??Abnormal abnormalities in each breast. Reportedly there were palpable abnormalities around the areola on each side. On the day of the exam the patient is unable to localize a specific palpable abnormality on either side COMPARISON: ??Initial exam TECHNIQUE: Synthesized CC and MLO projections of each breast. ??Tomosynthesis of each breast in the CC and MLO projections. ADDITIONAL IMAGING: None High-frequency linear transducer ultrasound of each breast targeted to the area of clinical concern. Computer-aided detection was employed. ??i CAD profound AI 3-D. TISSUE DENSITY: There are scattered areas of fibroglandular density. (BI-RADS category B) FINDINGS: MAMMOGRAPHY: RIGHT BREAST: No suspicious mass. No suspicious calcification. No distortion. LEFT BREAST: No suspicious mass. No suspicious calcification. No distortion. ULTRASOUND: RIGHT BREAST: The areolar region was examined with a high-frequency linear transducer. No suspicious mass. ??No suspicious area of altered echotexture. LEFT BREAST: The areolar region was examined with a high-frequency linear transducer. No suspicious mass. ??No suspicious area of altered echotexture. Procedure Note Dominguez Bautista MD - 10/11/2024 EXAM: DIAGNOSTIC MAMMOGRAPHY, BILATERAL ULTRASOUND: DIAGNOSTIC ULTRASOUND, BILATERAL HISTORY: Abnormal clinical breast exam. Abnormal abnormalities in eachbreast. Reportedly there were palpable abnormalities around the areola on eachside. On the day of the exam the patient is unable to localize a specificpalpable abnormality on either side COMPARISON: Initial exam TECHNIQUE: Synthesized CC and MLO projections of each breast.Tomosynthesis of each breast in the CC and MLO projections. ADDITIONAL IMAGING: None High-frequency linear transducer ultrasound of each breast targeted to thearea of clinical concern. Computer-aided detection was employed. i CAD profound AI 3-D. TISSUE DENSITY: There are scattered areas of fibroglandular density.(BI-RADS category B) FINDINGS: MAMMOGRAPHY: RIGHT BREAST: No suspicious mass. No suspicious calcification. No distortion. LEFT BREAST: No suspicious mass. No suspicious calcification. No distortion. ULTRASOUND: RIGHT BREAST: The areolar region was examined with a high-frequency linear transducer. No suspicious mass. No suspicious area of altered echotexture. LEFT BREAST: The areolar region was examined with a high-frequency linear transducer. No suspicious mass. No suspicious area of altered echotexture. IMPRESSION: No mammographic or sonographic evidence of malignancy No findings which might account for palpable abnormalities on each side The patient should be managed on the basis of the clinical breast exam A negative mammogram in the presence of a clinically suspicious palpableabnormality does not preclude the possibility of malignancy or alter theindications for biopsy. ASSESSMENT: BI-RADS 1: NEGATIVE RECOMMENDATION(S): 1: Clinical correlation recommended BILATERAL -------- FINAL REPORT -------- Dictated By: Dominguez Bautista Dictated Date: 10/11/2024 09:11 ET Assigned Physician: Dominguez Bautista Reviewed and Electronically Signed By: Dominguez Bautista Signed Date: 10/11/2024 09:14 ET Workstation ID: [id number] Transcribed By: Self Edit Transcribed Date: 10/11/2024 09:11 ET us Loraine Bradley MD [facility] US PROCEDURES Final Result * Beta hydroxybutyrate (09/06/2024 10:23 PM EST) [facility] Beta-Hydroxybu tyrate 1.4 0.2 - 2.8 mg/dL LAB CHEMISTRY METHOD 09/06/2024 11:[address] [facility] Blood Venous blood specimen / Unknown Venipuncture / Unknown 09/06/2024 10:23 PM EST 09/06/2024 10:38 PM EST Roddy Brewer MD LAB BLOOD ORDERABLES Final Result [facility] [address] [place] [address], * (ABNORMAL) CBC auto differential (09/06/2024 10:23 PM EST) [facility] WBC 8.0 4.8 - 10.8 K/mcL LAB HEMETOLOGY METHOD 09/06/2024 10:49 PM [facility] RBC 4.30 3.80 - 4.80 M/mcL LAB HEMETOLOGY METHOD 09/06/2024 10:49 PM [facility] Hemoglobin 12.7 11.5 - 16.0 g/dL LAB HEMETOLOGY METHOD 09/06/2024 10:49 PM [facility] Hematocrit 37.5 35.0 - 47.0 % LAB HEMETOLOGY METHOD 09/06/2024 10:49 PM [facility] MCV 86.4 79.0 - 98.0 FL LAB HEMETOLOGY METHOD 09/06/2024 10:49 PM [facility] MCH 29.3 27.0 - 32.0 pcg LAB HEMETOLOGY METHOD 09/06/2024 10:49 PM [facility] MCHC 33.9 32.0 - 37.0 g/dL LAB HEMETOLOGY METHOD 09/06/2024 10:49 PM [facility] RDW 13.0 11.0 - 15.0 % LAB HEMETOLOGY METHOD 09/06/2024 10:49 PM [facility] Platelets 456(H) 130 - 400 K/mcL LAB HEMETOLOGY METHOD 09/06/2024 10:49 PM [facility] MPV 8.9 7.0 - 11.0 FL LAB HEMETOLOGY METHOD 09/06/2024 10:49 PM [facility] NRBC 0.0 <1.0 % LAB HEMETOLOGY METHOD 09/06/2024 10:49 PM [facility] NRBC Absolute 0.00 <0.10 K/mcL LAB HEMETOLOGY METHOD 09/06/2024 10:49 PM [facility] Neutrophils Relative 67.5 % LAB HEMETOLOGY METHOD 09/06/2024 10:49 PM [facility] Lymphocytes Relative 25.2 % LAB HEMETOLOGY METHOD 09/06/2024 10:49 PM [facility] Monocytes Relative 5.4 % LAB HEMETOLOGY METHOD 09/06/2024 10:49 PM [facility] Eosinophils Relative 1.2 % LAB HEMETOLOGY METHOD 09/06/2024 10:49 PM [facility] Basophils Relative 0.5 % LAB HEMETOLOGY METHOD 09/06/2024 10:49 PM [facility] Immature Granulocytes Relative 0.2 % LAB HEMETOLOGY METHOD 09/06/2024 10:49 PM [facility] Neutrophils Absolute 5.40 1.50 - 7.00 K/mcL LAB HEMETOLOGY METHOD 09/06/2024 10:49 PM [facility] Lymphocytes Absolute 2.02 1.00 - 5.00 K/mcL LAB HEMETOLOGY METHOD 09/06/2024 10:[address] [facility] Monocytes Absolute 0.43 0.20 - 1.00 K/mcL LAB HEMETOLOGY METHOD 09/06/2024 10:[address] [facility] Eosinophils Absolute 0.10 0.00 - 0.50 K/mcL LAB HEMETOLOGY METHOD 09/06/2024 10:49 PM [facility] Basophils Absolute 0.04 0.00 - 0.20 K/mcL LAB HEMETOLOGY METHOD 09/06/2024 10:49 PM [facility] Immature Granulocytes Absolute 0.02 0.00 - 0.03 K/mcL LAB HEMETOLOGY METHOD 09/06/2024 10:49 PM [facility] Blood Venous blood specimen / Unknown Venipuncture / Unknown 09/06/2024 10:23 PM EST 09/06/2024 10:38 PM EST Roddy Brewer MD LAB BLOOD ORDERABLES Final Result Performing Organization Address City/[facility]/ZIP Co de Phone Number [facility] [address] [place] [address], [place] [phone] * (ABNORMAL) Osmolality (09/06/2024 10:23 PM EST) [facility] Osmolality Arabella 301(H) 280 - 300 mOsm/kg LAB CHEMISTRY METHOD 09/07/2024 1:[address] [facility] Blood Venous blood specimen / Unknown Venipuncture / Unknown 09/06/2024 10:23 PM EST 09/06/2024 10:38 PM EST Roddy Brewer MD LAB BLOOD ORDERABLES Final Result [facility] [address] [place] [address], [place] [phone] * Magnesium (09/06/2024 10:23 PM EST) [facility] Magnesium 1.9 1.9 - 2.6 mg/dL LAB CHEMISTRY METHOD 09/06/2024 11:[address] [facility] Blood Venous blood specimen / Unknown Venipuncture / Unknown 09/06/2024 10:23 PM EST 09/06/2024 10:38 PM EST Roddy Brewer MD LAB BLOOD ORDERABLES Final Result Performing Organization Address [facility]/ZIP Co de Phone Number [facility] [address] [place] [address], [place] [phone] * Lipase (09/06/2024 10:23 PM EST) [facility] Lipase 40 13 - 75 unit/L LAB CHEMISTRY METHOD 09/06/2024 11:[address] [facility] Blood Venous blood specimen / Unknown Venipuncture / Unknown 09/06/2024 10:23 PM EST 09/06/2024 10:38 PM EST Roddy Brewer MD LAB BLOOD ORDERABLES Final Result Performing Organization Address [facility] de Phone Number [facility] [address] [place] [address], [place] [phone] * (ABNORMAL) Basic metabolic panel (09/06/2024 10:23 PM EST) [facility] Sodium 130(L) 133 - 145 mmol/L LAB CHEMISTRY METHOD 09/06/2024 11:[address] [facility] Potassium 4.3 3.5 - 5.5 mmol/L LAB CHEMISTRY METHOD 09/06/2024 11:[address] [facility] Chloride 100 96 - 110 mmol/L LAB CHEMISTRY METHOD 09/06/2024 11:[address] [facility] CO2 21 21 - 32 mmol/L LAB CHEMISTRY METHOD 09/06/2024 11:[address] [facility] Anion Gap 9 3 - 11 LAB CHEMISTRY METHOD 09/06/2024 11:28 PM [facility] Glucose 547(HH) 70 - 100 mg/dL LAB CHEMISTRY METHOD 09/06/2024 11:28 PM [facility] BUN 12 5 - 25 mg/dL LAB CHEMISTRY METHOD 09/06/2024 11:28 PM [facility] Creatinine 1.12(H) 0.50 - 1.10 mg/dL LAB CHEMISTRY METHOD 09/06/2024 11:28 PM [facility] eGFR 65 >=60 mL/min/1. 73m2 LAB CHEMISTRY METHOD 09/06/2024 11:28 PM [facility] Comment:Calculation based on the??Chronic Kidney Disease Epidemiology Collaboration (CKD-EPI) equation refit??without adjustment for race. BUN/Creatinine Ratio 10.7 LAB CHEMISTRY METHOD 09/06/2024 11:28 PM [facility] Calcium 8.9 8.5 - 10.5 mg/dL LAB CHEMISTRY METHOD 09/06/2024 11:28 PM [facility] Blood Venous blood specimen / Unknown Venipuncture / Unknown 09/06/2024 10:23 PM EST 09/06/2024 10:38 PM EST Roddy Brewer MD LAB BLOOD ORDERABLES Final Result [facility] [address] [place] [address], from Last 3 Months Insurance MEDICAID - [place] Care Teams Health Analytics Consultant Relationship Specialty Start Date End Date Jesenia Gilmore PA [address] [place] [address] PCP - General Physician Log Operations Coordinator 10/11/24
[2024-11-22 21:44] VITALS: BP 168/99; PULSE 115; RESP 16; TEMP 36.9; O2SAT 100
== END 2024-11-22 21:25 | disposition home or self-care (01) ==
LOC: HO.ED 21:18
PROVIDERS: Emergency Provider Emergency Medicine
DX: F32.A Depression, unspecified (principal); R45.851 Suicidal ideations; E11.65 Type 2 diabetes mellitus with hyperglycemia; Z72.89 Other problems related to lifestyle; Z63.5 Disruption of family by separation and divorce; Z79.899 Other long term (current) drug therapy
CPT/HCPCS: 36415; 80053; 80307; 81001; 82947; 85025; 99285; S9485